=== PATIENT | male | born 1970 | race Caucasian/White ===

== ENCOUNTER 2021-01-12 14:16 | Emergency (ER) | payer MEDICAID, SELFPAY ==
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
[2021-01-12 14:21] VITALS: BP 125/82; PULSE 90; O2SAT 95
[2021-01-12 14:33] VITALS: BP 127/79; PULSE 90; RESP 17; TEMP 36.7; O2SAT 95; BMI 25.1
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
--- NOTE | 2021-01-12 15:54 | PC.NURSE ---
PT A+OX3, STEADY GAIT, AMBULATING AROUND ER, GOING OUTSIDE AND BACK INTO ED. PT PROVIDED WITH FOOD AND PO FLUIDS PER REQUEST OF PATIENT.
[2021-01-12 15:56] VITALS: PULSE 86; RESP 17; O2SAT 95
== END 2021-01-12 15:59 | disposition home or self-care (01) ==
PROVIDERS: Emergency Provider Emergency Medicine
DX: S43.401A Unspecified sprain of right shoulder joint, initial encounter (principal); S53.401A Unspecified sprain of right elbow, initial encounter; S63.91XA Sprain of unspecified part of right wrist and hand, initial encounter; S66.911A Strain of unspecified muscle, fascia and tendon at wrist and hand level, right hand, initial encounter; S63.501A Unspecified sprain of right wrist, initial encounter; S73.101A Unspecified sprain of right hip, initial encounter; S09.90XA Unspecified injury of head, initial encounter; V09.9XXA Pedestrian injured in unspecified transport accident, initial encounter; Y93.01 Activity, walking, marching and hiking; Y92.480 Sidewalk as the place of occurrence of the external cause; Y99.9 Unspecified external cause status
CPT/HCPCS: 70450; 72125; 73030; 73080; 73110; 73130; 73522; 99284; 99285

== ENCOUNTER → 2021-02-08 10:13 | Outpatient (BNVA) | payer MEDICAID, SELFPAY | PROVIDERS: Visit Provider Internal Medicine | DX: F11.99 Opioid use, unspecified with unspecified opioid-induced disorder (principal) | CPT/HCPCS: 80305; 99202 ==

== ENCOUNTER → 2021-02-18 13:35 | Outpatient (BNVA) | payer MEDICAID, SELFPAY | PROVIDERS: Visit Provider Internal Medicine | DX: Z51.81 Encounter for therapeutic drug level monitoring (principal); F11.99 Opioid use, unspecified with unspecified opioid-induced disorder | CPT/HCPCS: 80305; 99211 ==

== ENCOUNTER → 2021-02-25 13:07 | Outpatient (BNVA) | payer MEDICAID, SELFPAY | PROVIDERS: Visit Provider Internal Medicine | DX: Z51.81 Encounter for therapeutic drug level monitoring (principal); F11.99 Opioid use, unspecified with unspecified opioid-induced disorder | CPT/HCPCS: 80305; 99211 ==

== ENCOUNTER → 2021-03-04 10:37 | Outpatient (BNVA) | payer MEDICAID, SELFPAY | PROVIDERS: Visit Provider Internal Medicine | DX: Z51.81 Encounter for therapeutic drug level monitoring (principal) | CPT/HCPCS: 80305; 99211 ==

== ENCOUNTER → 2021-03-11 10:51 | Outpatient (BNVA) | payer MEDICAID, SELFPAY | PROVIDERS: Visit Provider Internal Medicine | DX: F11.20 Opioid dependence, uncomplicated (principal); F14.90 Cocaine use, unspecified, uncomplicated | CPT/HCPCS: 80305; 99212 ==

== ENCOUNTER → 2021-03-13 14:58 | Outpatient (BNVA) | payer MEDICAID, SELFPAY | PROVIDERS: Visit Provider Internal Medicine | DX: F11.90 Opioid use, unspecified, uncomplicated (principal) | CPT/HCPCS: 80305; 99212 ==

== ENCOUNTER → 2021-03-20 14:38 | Outpatient (BNVA) | payer MEDICAID, SELFPAY | PROVIDERS: Visit Provider Internal Medicine | DX: Z51.81 Encounter for therapeutic drug level monitoring (principal); F11.90 Opioid use, unspecified, uncomplicated; F14.988 Cocaine use, unspecified with other cocaine-induced disorder; R45.1 Restlessness and agitation | CPT/HCPCS: 80305; 99212 ==

== ENCOUNTER → 2021-04-03 10:23 | Outpatient (BNVA) | payer MEDICAID, SELFPAY | PROVIDERS: Visit Provider Internal Medicine | DX: F11.20 Opioid dependence, uncomplicated (principal); Z51.81 Encounter for therapeutic drug level monitoring; Z79.899 Other long term (current) drug therapy | CPT/HCPCS: 80305; 99212 ==

== ENCOUNTER 2021-04-10 13:54 | Outpatient (REF) | payer MEDICAID, SELFPAY ==
[2021-04-10 17:08] LABS: Fentanyl, urine POSITIVE (Not Detect)
== END 2021-04-10 13:55 | disposition home or self-care (01) ==
LOC: CF 13:54
PROVIDERS: Visit Provider Internal Medicine
DX: Z51.81 Encounter for therapeutic drug level monitoring (principal); F11.20 Opioid dependence, uncomplicated; Z79.899 Other long term (current) drug therapy
CPT/HCPCS: 36415; 80307; 99212

== ENCOUNTER → 2021-04-15 12:57 | Outpatient (BNVA) | payer MEDICAID, SELFPAY | PROVIDERS: Visit Provider Internal Medicine | DX: Z51.81 Encounter for therapeutic drug level monitoring (principal); F11.90 Opioid use, unspecified, uncomplicated | CPT/HCPCS: 99212 ==

== ENCOUNTER 2021-04-16 10:23 | Outpatient (REF) | payer MEDICAID, SELFPAY ==
[2021-04-16 17:26] LABS: Fentanyl, urine POSITIVE (Not Detect)
== END 2021-04-16 10:24 | disposition home or self-care (01) ==
LOC: HO.LNP 10:23
PROVIDERS: Visit Provider Internal Medicine
DX: F11.99 Opioid use, unspecified with unspecified opioid-induced disorder (principal); Z79.899 Other long term (current) drug therapy
CPT/HCPCS: 80307; 99212

== ENCOUNTER 2021-05-20 21:59 | Emergency (ER) | payer MEDICAID, SELFPAY ==
[2021-05-20 22:19] VITALS: BP 119/79; PULSE 90; RESP 18; TEMP 37.2; O2SAT 100; BMI 22.1
== END 2021-05-20 23:16 | disposition left against medical advice (07) ==
PROVIDERS: Emergency Provider Emergency Medicine
DX: M79.606 Pain in leg, unspecified (principal)
CPT/HCPCS: 99281; 99282

== ENCOUNTER 2021-06-25 16:43 | Emergency (ER) | payer MEDICAID, SELFPAY ==
[2021-06-25 17:06] VITALS: BP 139/85; PULSE 83; RESP 18; TEMP 36.1; O2SAT 100; BMI 23.6
--- NOTE | 2021-06-25 17:54 | ED.PSYCH ---
HPI - Psych General Chief Complaint: Psychiatric Symptoms <Teresita Flanagan NP - Last Filed: 06/26/21 00:31> Stated Complaint: crisis <Teresita Flanagan NP - Last Filed: 06/26/21 00:31> Time Seen by Provider: 06/25/21 17:26 <Teresita Flanagan NP - Last Filed: 06/26/21 00:31> Source: patient <Teresita Flanagan NP - Last Filed: 06/26/21 00:31> Mode of arrival: ambulatory <Teresita Flanagan NP - Last Filed: 06/26/21 00:31> Limitations: no limitations <Teresita Flanagan NP - Last Filed: 06/26/21 00:31> History of Present Illness HPI Narrative: 50-year-old male with a history of anxiety, depression here with complaints of using cocaine and heroin daily feeling sad and depressed and seeking detox. Patient tells me last Thursday he started taking methadone daily 30 mg at the clinic in [place]. He still feels like he needs inpatient detox as he is using heroin and cocaine still daily. He tells me he is using about 5 bundles a day of IV heroin and about 10-20 bags IV cocaine daily. He denies any additional substance use. He has no physical complaints. He denies suicidal ideations, homicidal ideations, hallucinations. <Teresita Flanagan NP - Last Filed: 06/26/21 00:31> Related Data Home Medications: Home Medications Medication Instructions Recorded Confirmed methadone 5 mg tablet 30 mg PO DAILY 06/26/21 06/26/21 Previous Rx's Medication Instructions Recorded acetaminophen 500 mg tablet 1,000 mg PO QID PRN #14 tab 01/12/21 (Tylenol Extra Strength) cyclobenzaprine 5 mg tablet 5 mg PO TID PRN #5 tab 01/12/21 ibuprofen 800 mg tablet 800 mg PO Q8H PRN #14 tab 01/12/21 buprenorphine 8 mg-naloxone 2 mg 3 film SUBLINGUAL DAILY 7 Days #21 04/16/21 sublingual film (Suboxone) ea <Teresita Flanagan NP - Last Filed: 06/26/21 00:31> Allergies/Adverse Reactions: Allergies Allergy/AdvReac Type Severity Reaction Status Date / Time No Known Allergies Allergy Verified 02/18/21 13:48 [No Known Allergies*] <Teresita Flanagan NP - Last Filed: 06/26/21 00:31> Review of Systems Review of Systems: Yes all other systems are reviewed and are negative <MAC Warren Last Filed: 06/26/21 00:31> Constitutional: Constitutional: Reports no additional constitutional complaints, Denies body ache(s), Denies chills, Denies fever(s), Denies headache(s) and Denies weakness <Teresita Flanagan NP - Last Filed: 06/26/21 00:31> Eyes: Eyes: Reports no additional eye complaints and Denies change in vision <Teresita Flanagan NP - Last Filed: 06/26/21 00:31> ENT: Reports system reviewed and no additional complaints, except as documented, Denies dizziness, Denies headache(s), Denies nasal congestion, Denies nasal discharge and Denies neck pain <Teresita Flanagan NP - Last Filed: 06/26/21 00:31> Cardiovascular: Cardiovascular: Reports no additional cardiovascular complaints, Denies chest pain, Denies leg edema and Denies dyspnea <Teresita Flanagan NP - Last Filed: 06/26/21 00:31> Respiratory: Respiratory: Reports no additional respiratory complaints, Denies cough and Denies dyspnea <Teresita Flanagan NP - Last Filed: 06/26/21 00:31> Gastrointestinal: Gastrointestinal: Reports no additional gastrointestinal complaints, Denies abdominal pain, Denies diarrhea, Denies nausea and Denies vomiting <Teresita Flanagan NP - Last Filed: 06/26/21 00:31> Genitourinary: Genitourinary: Denies urinary incontinence <Teresita Flanagan NP - Last Filed: 06/26/21 00:31> Musculoskeletal: Musculoskeletal: Reports no additional musculoskeletal complaints, Denies back pain, Denies arthralgias, Denies joint swelling, Denies neck pain, Denies numbness and Denies tingling <Teresita Flanagan NP - Last Filed: 06/26/21 00:31> Integumentary/Breasts: Skin/Breast: Reports system reviewed and no additional complaints, except as docu and Denies rash <Teresita Flanagan NP - Last Filed: 06/26/21 00:31> Neurologic: Reports system reviewed and no additional complaints, except as documented, Denies Abnormal speech present, Denies dizziness, Denies headache(s), Denies numbness, Denies tingling and Denies weakness <Teresita Flanagan NP - Last Filed: 06/26/21 00:31> Psychiatric: Psychiatric: Denies anxiety, Reports depression, Denies paranoia, Denies visual hallucinations, Denies hallucinations, Denies homicidal ideation and Denies suicidal ideation <Teresita Flanagan NP - Last Filed: 06/26/21 00:31> [facility] Past Medical History Attestation statement: The following information was validated with the patient. <Teresita Flanagan NP - Last Filed: 06/26/21 00:31> Source: old records reviewed and nursing notes reviewed <Teresita Flanagan NP - Last Filed: 06/26/21 00:31> Medical History: Medical History No known health problems Opioid use disorder <Teresita Flanagan NP - Last Filed: 06/26/21 00:31> Social History Social History: Social History Advance Directives: No Advance Directives Information Provided: No <Teresita Flanagan NP - Last Filed: 06/26/21 00:31> Physical Exam Vital Signs: Vital Signs: Last Vital Signs Temp 97.3 F 06/26/21 02:17 Pulse 69 06/26/21 02:17 Resp 16 06/26/21 02:17 BP 128/79 06/26/21 02:17 Pulse Ox 96 06/26/21 02:17 BMI result Body Mass Index 23.6 <Teresita Flanagan NP - Last Filed: 06/26/21 00:31> Vital Signs: Last Vital Signs Temp 97.3 F 06/26/21 02:17 Pulse 69 06/26/21 02:17 Resp 16 06/26/21 02:17 BP 128/79 06/26/21 02:17 Pulse Ox 96 06/26/21 02:17 BMI result Body Mass Index 23.6 <SORIN Sumner - Last Filed: 06/26/21 08:15> Const: General: cooperative, healthy appearing, comfortable and no acute distress <Teresita Flanagan NP - Last Filed: 06/26/21 00:31> Orientation/consciousness: patient oriented x3 <Teresita Flanagan NP - Last Filed: 06/26/21 00:31> Limitations: no limitations <eTresita Flanagan NP - Last Filed: 06/26/21 00:31> HENMT: Head: Yes normal to inspection <Teresita Flanagan NP - Last Filed: 06/26/21 00:31> Ears: hearing grossly normal bilaterally <Teresita Flanagan NP - Last Filed: 06/26/21 00:31> General nose exam: Normal external nose present <Teresita Flanagan NP - Last Filed: 06/26/21 00:31> Face and sinus: Yes normal facial exam <Teresita Flanagan NP - Last Filed: 06/26/21 00:31> Mouth: Normal oral and palatal mucosa present <Teresita Flanagan NP - Last Filed: 06/26/21 00:31> Throat: Yes posterior oropharynx normal <Teresita Flanagan NP - Last Filed: 06/26/21 00:31> Eyes: General: appearance normal, both eyes and all related structures <Teresita Flanagan NP - Last Filed: 06/26/21 00:31> Pupils: Equal, round and reactive pupils present <Teresita Flanagan NP - Last Filed: 06/26/21 00:31> Neck: Neck: Yes normal visual inspection <Teresita Flanagan NP - Last Filed: 06/26/21 00:31> Chest: Chest palpation & inspection: normal inspection of the chest <Teresita Flanagan NP - Last Filed: 06/26/21 00:31> Resp: Effort & Inspection: normal respiratory effort <Teresita Flanagan NP - Last Filed: 06/26/21 00:31> Auscultation: clear to auscultation bilaterally <Teresita Flanagan NP - Last Filed: 06/26/21 00:31> Cardio: Rate: regular rate <Teresita Flanagan NP - Last Filed: 06/26/21 00:31> Rhythm: regular rhythm <Teresita Flanagan NP - Last Filed: 06/26/21 00:31> Peripheral pulses: Peripheral pulses 2+ throughout <Teresita Flanagan NP - Last Filed: 06/26/21 00:31> GI: Inspection: Yes normal to inspection <Teresita Flanagan NP - Last Filed: 06/26/21 00:31> Palpation (GI): Soft to palpation and nontender <Teresita Flanagan NP - Last Filed: 06/26/21 00:31> Auscultation: normal bowel sounds <Teresita Flanagan NP - Last Filed: 06/26/21 00:31> Back/Spine/Pelvis: Thoracic/Lumbar Spine: thoracic and lumbar spine normal to inspection <Teresita Flanagan NP - Last Filed: 06/26/21 00:31> Skin: General skin exam: no rashes or lesions noted <Teresita Flanagan NP - Last Filed: 06/26/21 00:31> Neuro: General: patient oriented x3, no focal motor deficits and normal sensation to monofilament <Teresita Flanagan NP - Last Filed: 06/26/21 00:31> Cranial nerves: Yes Equal, round and reactive pupils present <Teresita Flanagan NP - Last Filed: 06/26/21 00:31> Cognition (Neuro): normal cognition <Teresita Flanagan NP - Last Filed: 06/26/21 00:31> Speech: No Abnormal speech present <Teresita Flanagan NP - Last Filed: 06/26/21 00:31> Gait exam (Neuro): Normal gait present <Teresita Flanagan NP - Last Filed: 06/26/21 00:31> Motor exam (neuro): 5/5 motor strength present throughout <Teresita Flanagan NP - Last Filed: 06/26/21 00:31> Extrem: General: Yes normal to inspection, Yes no pedal edema and Yes no calf tenderness <Teresita Flanagan NP - Last Filed: 06/26/21 00:31> Course Course Course Narrative: 50 yo male here seeking detox from cocaine and heroin. No physical complaints. No SI, HI. Will check labs, [place], COVID screen. Will involve care team. 2155-Spoke to recovery team. Plan is detox in AM. If patient wants to leave tonight he can. 0030- placed in physician observation pending disposition. 0200- sign out to night team pending above <Teresita Flanagan NP - Last Filed: 06/26/21 00:31> MDM - Psych Medical Records Attestation: I reviewed the patient's medical records. <Teresita Flanagan NP - Last Filed: 06/26/21 00:31> Lab Data Attestation: I reviewed the patient's lab results. <Teresita Flanagan NP - Last Filed: 06/26/21 00:31> Result diagrams: : 06/25/21 19:06 06/25/21 19:05 <Teresita Flanagan NP - Last Filed: 06/26/21 00:31> Labs: Lab Results 06/25/21 06/25/21 06/25/21 Range/Units 18:07 18:07 19:05 WBC (4.8-10.8) X10*3/uL RBC (4.60-5.80) X10*6/uL Hgb (14.0-18.0) g/dl Hct (42.0-52.0) % MCV (80.0-98.0) fL MCH (27.0-33.0) pg MCHC (31.0-36.0) g/dl RDW (11.0-16.0) % Plt Count (160-400) X10*3/uL MPV (9.4-12.4) fL Immature Gran % (Auto) (0.0-0.4) % Neut % (Auto) (45-73) % Lymph % (Auto) (20-40) % Ritchie % (Auto) (2-11) % Eos % (Auto) (0-4) % Baso % (Auto) (0-2) % Lymph # (Auto) (1.2-4.9) X10*3/uL Ritchie # (Auto) (0.1-1.2) X10*3/uL Eos # (Auto) (0.0-0.4) X10*3/uL Baso # (Auto) (0.0-0.2) X10*3/uL Abs Immat Gran (auto) (0.00-0.03) X10*3/uL Absolute Neuts (auto) (2.0-8.3) x10*3/uL Absolute Nucleated RBC (0.0-0.012) X10*3/uL Nucleated RBC % (auto) (0.0-0.2) /100WBC Sodium 140 (135-145) mmol/L Potassium 3.7 (3.3-5.1) mmol/L Chloride 101 (96-108) mmol/L Carbon Dioxide 29 (22-29) mmol/L Anion Gap 14 (12-20) BUN 22 H (9-16) mg/dL Creatinine 1.33 (0.5-1.4) mg/dL Estim Creat Clear Calc 64.9 Estimated GFR 56 Random Glucose 92 (60-115) mg/dL Calcium 9.6 (8.4-10.2) mg/dL Total Bilirubin 0.3 (0.0-1.0) mg/dL Direct Bilirubin < 0.2 (0.0-0.5) mg/dL AST 43 H (5-37) U/L ALT 44 H (0-40) U/L Alkaline Phosphatase 63 (39-117) U/L Total Protein 8.1 H (6.5-8.0) g/dL Albumin 3.8 (3.5-5.0) g/dL Urine Opiates Screen POSITIVE H (Not Detect) Urine Fentanyl Screen POSITIVE H (Not Detect) Ur Barbiturates Screen Not Detected (Not Detect) Ur Phencyclidine Scrn Not Detected (Not Detect) Ur Amphetamines Screen Not Detected (Not Detect) U Benzodiazepines Scrn Not Detected (Not Detect) Urine Cocaine Screen POSITIVE H (Not Detect) U Marijuana (THC) Screen Not Detected (Not Detect) Ethyl Alcohol mg/dL COVID-19 (DAREN) Negative (Negative) COVID-19 Clin Com See Note 06/25/21 06/25/21 Range/Units 19:05 19:06 WBC 8.9 (4.8-10.8) X10*3/uL RBC 4.50 L (4.60-5.80) X10*6/uL Hgb 12.0 L (14.0-18.0) g/dl Hct 38.8 L (42.0-52.0) % MCV 86.2 (80.0-98.0) fL MCH 26.7 L (27.0-33.0) pg MCHC 30.9 L (31.0-36.0) g/dl RDW 13.6 (11.0-16.0) % Plt Count 367 (160-400) X10*3/uL MPV 9.8 (9.4-12.4) fL Immature Gran % (Auto) 0.2 (0.0-0.4) % Neut % (Auto) 70.1 (45-73) % Lymph % (Auto) 21.9 (20-40) % Ritchie % (Auto) 6.2 (2-11) % Eos % (Auto) 1.0 (0-4) % Baso % (Auto) 0.6 (0-2) % Lymph # (Auto) 2.0 (1.2-4.9) X10*3/uL Ritchie # (Auto) 0.6 (0.1-1.2) X10*3/uL Eos # (Auto) 0.1 (0.0-0.4) X10*3/uL Baso # (Auto) 0.1 (0.0-0.2) X10*3/uL Abs Immat Gran (auto) 0.02 (0.00-0.03) X10*3/uL Absolute Neuts (auto) 6.3 (2.0-8.3) x10*3/uL Absolute Nucleated RBC 0.000 (0.0-0.012) X10*3/uL Nucleated RBC % (auto) 0.0 (0.0-0.2) /100WBC Sodium (135-145) mmol/L Potassium (3.3-5.1) mmol/L Chloride (96-108) mmol/L Carbon Dioxide (22-29) mmol/L Anion Gap (12-20) BUN (9-16) mg/dL Creatinine (0.5-1.4) mg/dL Estim Creat Clear Calc Estimated GFR Random Glucose (60-115) mg/dL Calcium (8.4-10.2) mg/dL Total Bilirubin (0.0-1.0) mg/dL Direct Bilirubin (0.0-0.5) mg/dL AST (5-37) U/L ALT (0-40) U/L Alkaline Phosphatase (39-117) U/L Total Protein (6.5-8.0) g/dL Albumin (3.5-5.0) g/dL Urine Opiates Screen (Not Detect) Urine Fentanyl Screen (Not Detect) Ur Barbiturates Screen (Not Detect) Ur Phencyclidine Scrn (Not Detect) Ur Amphetamines Screen (Not Detect) U Benzodiazepines Scrn (Not Detect) Urine Cocaine Screen (Not Detect) U Marijuana (THC) Screen (Not Detect) Ethyl Alcohol < 10 mg/dL COVID-19 (DAREN) (Negative) COVID-19 Clin Com <Teresita Flanagan NP - Last Filed: 06/26/21 00:31> Lab Results 06/25/21 06/25/21 06/25/21 Range/Units 18:07 18:07 19:05 WBC (4.8-10.8) X10*3/uL RBC (4.60-5.80) X10*6/uL Hgb (14.0-18.0) g/dl Hct (42.0-52.0) % MCV (80.0-98.0) fL MCH (27.0-33.0) pg MCHC (31.0-36.0) g/dl RDW (11.0-16.0) % Plt Count (160-400) X10*3/uL MPV (9.4-12.4) fL Immature Gran % (Auto) (0.0-0.4) % Neut % (Auto) (45-73) % Lymph % (Auto) (20-40) % Ritchie % (Auto) (2-11) % Eos % (Auto) (0-4) % Baso % (Auto) (0-2) % Lymph # (Auto) (1.2-4.9) X10*3/uL Ritchie # (Auto) (0.1-1.2) X10*3/uL Eos # (Auto) (0.0-0.4) X10*3/uL Baso # (Auto) (0.0-0.2) X10*3/uL Abs Immat Gran (auto) (0.00-0.03) X10*3/uL Absolute Neuts (auto) (2.0-8.3) x10*3/uL Absolute Nucleated RBC (0.0-0.012) X10*3/uL Nucleated RBC % (auto) (0.0-0.2) /100WBC Sodium 140 (135-145) mmol/L Potassium 3.7 (3.3-5.1) mmol/L Chloride 101 (96-108) mmol/L Carbon Dioxide 29 (22-29) mmol/L Anion Gap 14 (12-20) BUN 22 H (9-16) mg/dL Creatinine 1.33 (0.5-1.4) mg/dL Estim Creat Clear Calc 64.9 Estimated GFR 56 Random Glucose 92 (60-115) mg/dL Calcium 9.6 (8.4-10.2) mg/dL Total Bilirubin 0.3 (0.0-1.0) mg/dL Direct Bilirubin < 0.2 (0.0-0.5) mg/dL AST 43 H (5-37) U/L ALT 44 H (0-40) U/L Alkaline Phosphatase 63 (39-117) U/L Total Protein 8.1 H (6.5-8.0) g/dL Albumin 3.8 (3.5-5.0) g/dL Urine Opiates Screen POSITIVE H (Not Detect) Urine Fentanyl Screen POSITIVE H (Not Detect) Ur Barbiturates Screen Not Detected (Not Detect) Ur Phencyclidine Scrn Not Detected (Not Detect) Ur Amphetamines Screen Not Detected (Not Detect) U Benzodiazepines Scrn Not Detected (Not Detect) Urine Cocaine Screen POSITIVE H (Not Detect) U Marijuana (THC) Screen Not Detected (Not Detect) Ethyl Alcohol mg/dL COVID-19 (DAREN) Negative (Negative) COVID-19 Clin Com See Note 06/25/21 06/25/21 Range/Units 19:05 19:06 WBC 8.9 (4.8-10.8) X10*3/uL RBC 4.50 L (4.60-5.80) X10*6/uL Hgb 12.0 L (14.0-18.0) g/dl Hct 38.8 L (42.0-52.0) % MCV 86.2 (80.0-98.0) fL MCH 26.7 L (27.0-33.0) pg MCHC 30.9 L (31.0-36.0) g/dl RDW 13.6 (11.0-16.0) % Plt Count 367 (160-400) X10*3/uL MPV 9.8 (9.4-12.4) fL Immature Gran % (Auto) 0.2 (0.0-0.4) % Neut % (Auto) 70.1 (45-73) % Lymph % (Auto) 21.9 (20-40) % Ritchie % (Auto) 6.2 (2-11) % Eos % (Auto) 1.0 (0-4) % Baso % (Auto) 0.6 (0-2) % Lymph # (Auto) 2.0 (1.2-4.9) X10*3/uL Ritchie # (Auto) 0.6 (0.1-1.2) X10*3/uL Eos # (Auto) 0.1 (0.0-0.4) X10*3/uL Baso # (Auto) 0.1 (0.0-0.2) X10*3/uL Abs Immat Gran (auto) 0.02 (0.00-0.03) X10*3/uL Absolute Neuts (auto) 6.3 (2.0-8.3) x10*3/uL Absolute Nucleated RBC 0.000 (0.0-0.012) X10*3/uL Nucleated RBC % (auto) 0.0 (0.0-0.2) /100WBC Sodium (135-145) mmol/L Potassium (3.3-5.1) mmol/L Chloride (96-108) mmol/L Carbon Dioxide (22-29) mmol/L Anion Gap (12-20) BUN (9-16) mg/dL Creatinine (0.5-1.4) mg/dL Estim Creat Clear Calc Estimated GFR Random Glucose (60-115) mg/dL Calcium (8.4-10.2) mg/dL Total Bilirubin (0.0-1.0) mg/dL Direct Bilirubin (0.0-0.5) mg/dL AST (5-37) U/L ALT (0-40) U/L Alkaline Phosphatase (39-117) U/L Total Protein (6.5-8.0) g/dL Albumin (3.5-5.0) g/dL Urine Opiates Screen (Not Detect) Urine Fentanyl Screen (Not Detect) Ur Barbiturates Screen (Not Detect) Ur Phencyclidine Scrn (Not Detect) Ur Amphetamines Screen (Not Detect) U Benzodiazepines Scrn (Not Detect) Urine Cocaine Screen (Not Detect) U Marijuana (THC) Screen (Not Detect) Ethyl Alcohol < 10 mg/dL COVID-19 (DAREN) (Negative) COVID-19 Clin Com <SORIN Sumner - Last Filed: 06/26/21 08:15> Discharge Plan Discharge Clinical Impression: Opioid use disorder <Teresita Flanagan NP - Last Filed: 06/26/21 00:31> Prescriptions: No Action ibuprofen 800 mg tablet 800 mg PO Q8H PRN (Reason: pain) Qty: 14 RF: 0 acetaminophen [Tylenol Extra Strength] 500 mg tablet 1,000 mg PO QID PRN (Reason: fever or pain) Qty: 14 RF: 0 cyclobenzaprine 5 mg tablet 5 mg PO TID PRN (Reason: muscle spasm) Qty: 5 RF: 0 methadone 5 mg Tablet 30 mg PO DAILY RF: 0 buprenorphine-naloxone [Suboxone] 8-2 mg film 3 film sublingual DAILY 7 Days Qty: 21 RF: 0 <Teresita Flanagan NP - Last Filed: 06/26/21 00:31>
--- NOTE | 2021-06-25 18:16 | PC.NURSE ---
patient states wanrs help with detox from heroin and cocaine says he uses 2-5 bundles daiily, homeless, needs help with housing. feels safe, states he hasnt moved bowels normally for about 3 days, smokes about 1-2ppd cigarettes. alvinly had a bed at [facility] and will be continued at [facility] for methadone but still needs housing supports.
[2021-06-25 18:29] LABS: COVID-19 Test Negative (Negative)
--- NOTE | 2021-06-25 18:29 | MHC.RECOVSUP ---
? Reason for consult:Detox o?? Current location -04 ? o?? Identified substance use concern ?Heroin/Cocaine ?? Seeking ATS (detox) ?? Support ? Intervention: o?? ATS bed search started/completed/in process o?? MAT started or to be started o?? Community resources provided o?? Harm reduction discussion ? Plan: o?? Bed search in progress to o?? Follow up tomorrow? o?? Patient awaiting crisis evaluation o?? Patient to follow up with [facility] after discharge ? Additional information: ?Met with Pt.states that he had a bed at [facility] today. But didn't fall through . I call and left a message with [facility] still no response. Spoke to the Care Team and hopefully [facility] can call tomorrow and find out the statics of his bed search.
[2021-06-25 18:31] LABS: Amphetamine Screen Urine Not Detected (Not Detect); Barbiturates, Urine Not Detected (Not Detect); Benzodiazepines Screen Urine Not Detected (Not Detect); Cannabinoid Screen Urine Not Detected (Not Detect); Cocaine Screen Urine POSITIVE (Not Detect); Fentanyl, urine POSITIVE (Not Detect); Opiate Screen Urine POSITIVE (Not Detect); Phencyclidine Screen Urine Not Detected (Not Detect)
[2021-06-25 19:11] LABS: MANUAL DIFF FLAG NO
[2021-06-25 19:12] LABS: Basophils Absolute Auto 0.1 X10*3/uL (0.0-0.2); Basophils Percent Auto 0.6 % (0-2); Eosinophils Absolute Auto 0.1 X10*3/uL (0.0-0.4); Hematocrit 38.8 % (42.0-52.0); Imm Gran Abs Auto 0.02 X10*3/uL (0.00-0.03); Imm Gran Pct Auto 0.2 % (0.0-0.4); Lymphocytes Percent Auto 21.9 % (20-40); Mean Corpuscular HGB Conc 30.9 g/dl (31.0-36.0); Mean Corpuscular Hemoglobin 26.7 pg (27.0-33.0); Mean Corpuscular Volume 86.2 fL (80.0-98.0); Mean Platelet Volume 9.8 fL (9.4-12.4); Monocytes Absolute Auto 0.6 X10*3/uL (0.1-1.2); Monocytes Percent Auto 6.2 % (2-11); Neutrophils Absolute Auto 6.3 x10*3/uL (2.0-8.3); Neutrophils Percent Auto 70.1 % (45-73); Platelet Count 367 X10*3/uL (160-400); Red Cell Distribution Width 13.6 % (11.0-16.0); White Blood Count 8.9 X10*3/uL (4.8-10.8)
[2021-06-25 19:27] LABS: Ethanol < 10 mg/dL
[2021-06-25 19:30] LABS: Alanine Aminotransferase 44 U/L (0-40); Albumin Level 3.8 g/dL (3.5-5.0); Alkaline Phosphatase 63 U/L (39-117); Anion Gap 14 (12-20); Aspartate Amino Transferase 43 U/L (5-37); Bilirubin Direct < 0.2 mg/dL (0.0-0.5); Bilirubin Total 0.3 mg/dL (0.0-1.0); Blood Urea Nitrogen 22 mg/dL (9-16); Calcium 9.6 mg/dL (8.4-10.2); Carbon Dioxide 29 mmol/L (22-29); Chloride 101 mmol/L (96-108); Creatinine Clr Calc Pharmacy 64.9; Estimated Glomerular Filt Rate 56; Glucose Random 92 mg/dL (60-115); Potassium 3.7 mmol/L (3.3-5.1); Sodium 140 mmol/L (135-145); Total Protein 8.1 g/dL (6.5-8.0)
[2021-06-26 02:17] VITALS: BP 128/79; PULSE 69; RESP 16; TEMP 36.3; O2SAT 96
--- NOTE | 2021-06-26 06:13 | PC.NURSE ---
Patient slept through the night, no distress observed/reported, patient was few times for bathroom use and back, Luxembourgish speaking only, patient is not on any medication at this time except Methadon 30 mg which is verified by [facility], [facility] rec updated/pharmacy faxed/pending providers approval, head girls golf coach is working on patient's detox bed search (see head girls golf coach note), VSS, will continue to monitor
--- NOTE | 2021-06-26 07:16 | PC.NURSE ---
patient appears to remain at rest at present respirations are even and unlabored appears in no distress
[2021-06-26] MEDS: methADONE HCl 20 MG/2 ML ORAL.CONC 30 MG PO (08:50)
--- NOTE | 2021-06-26 08:55 | MHC.RECOVSUP ---
Recovery Support note: Patient is a 50 year old Swiss speaking male who presented to [facility] seeking detox on 06/25/21. No beds were available at that time and patient remained in the ED overnight. This administrative underwriter met with patient on 06/26/21 to confirm he is still interested in detox. Patient confirms he is interested in detox. Patient has been accepted to [facility] for a 945 admission time. [facility] transport patient. Discussed case with patient's RN and ED provider.
== END 2021-06-26 09:31 | disposition home or self-care (01) ==
PROVIDERS: Nurse Practitioner Family; Emergency Provider Emergency Medicine Emergency Medical Services
DX: F33.1 Major depressive disorder, recurrent, moderate (principal); F11.10 Opioid abuse, uncomplicated; F14.10 Cocaine abuse, uncomplicated; Z20.822 Contact with and (suspected) exposure to COVID-19; Z79.899 Other long term (current) drug therapy
CPT/HCPCS: 36415; 80048; 80076; 80307; 82077; 85025; 87635; 99283; 99284

== ENCOUNTER 2021-12-01 19:38 | Observation (INO) | payer MEDICAID, SELFPAY ==
--- NOTE | ~2021-12-01 | US_ITS ---
EXAMINATION: US VENOUS ULTRASOUND WITH DOPPLER LOWER EXTREMITY, BILATERAL CLINICAL INFORMATION: Bilateral lower extremity edema and pain COMPARISON: None TECHNIQUE: Ultrasound of the deep veins is performed from the hip to the calf with compression sonography and color and pulse Doppler assessment. Spectral analysis with color-flow imaging is performed. FINDINGS: RIGHT: There is normal venous compression and respiratory variation and augmented flow. The visualized common femoral vein, superficial femoral vein, profunda femoral vein, popliteal vein, and the trifurcation region shows no evidence of deep venous thrombosis. There is no significant popliteal fossa cyst. Prominent lymph nodes are seen in the inguinal region LEFT: There is normal venous compression and respiratory variation and augmented flow. The visualized common femoral vein, superficial femoral vein, profunda femoral vein, popliteal vein, and the trifurcation region shows no evidence of deep venous thrombosis. There is no significant popliteal fossa cyst. Prominent lymph nodes are seen in the inguinal region. If the patient's symptoms persist, followup ultrasound in 5 days 7 days might be of value to exclude proximal propagation from a non-visualized calf vein. US/US venous duplex LE BI IMPRESSION: No DVT demonstrated in either lower extremity.
[2021-12-01 19:47] VITALS: BP 138/78; PULSE 78; O2SAT 97
--- NOTE | 2021-12-01 19:49 | PC.NURSE ---
Brother's phone number [phone] (Yoav
[2021-12-01 19:54] VITALS: BP 120/75; PULSE 97; RESP 18; TEMP 38; O2SAT 95; BMI 24.0
[2021-12-01 20:11] LABS: MANUAL DIFF FLAG NO
[2021-12-01 20:13] LABS: Basophils Absolute Auto 0.1 X10*3/uL (0.0-0.2); Basophils Percent Auto 0.5 % (0-2); Eosinophils Percent Auto 0.1 % (0-4); Hematocrit 33.9 % (42.0-52.0); Hemoglobin 10.8 g/dl (14.0-18.0); Imm Gran Abs Auto 0.04 X10*3/uL (0.00-0.03); Imm Gran Pct Auto 0.4 % (0.0-0.4); Lymphocytes Percent Auto 8.9 % (20-40); Mean Corpuscular HGB Conc 31.9 g/dl (31.0-36.0); Mean Corpuscular Hemoglobin 26.9 pg (27.0-33.0); Mean Corpuscular Volume 84.5 fL (80.0-98.0); Mean Platelet Volume 11.2 fL (9.4-12.4); Monocytes Absolute Auto 0.9 X10*3/uL (0.1-1.2); Monocytes Percent Auto 7.9 % (2-11); Neutrophils Absolute Auto 9.1 x10*3/uL (2.0-8.3); Neutrophils Percent Auto 82.2 % (45-73); Platelet Count 290 X10*3/uL (160-400); Red Blood Count 4.01 X10*6/uL (4.60-5.80); Red Cell Distribution Width 13.2 % (11.0-16.0); White Blood Count 11.1 X10*3/uL (4.8-10.8)
[2021-12-01 20:32] LABS: Alanine Aminotransferase 34 U/L (0-40); Albumin Level 3.8 g/dL (3.5-5.0); Alkaline Phosphatase 57 U/L (39-117); Anion Gap 12 (12-20); Aspartate Amino Transferase 46 U/L (5-37); Bilirubin Total 1.1 mg/dL (0.0-1.0); Blood Urea Nitrogen 37 mg/dL (9-16); Calcium 9.5 mg/dL (8.4-10.2); Carbon Dioxide 24 mmol/L (22-29); Chloride 100 mmol/L (96-108); Creatinine Clr Calc Pharmacy 36.3; Estimated Glomerular Filt Rate 36; Glucose Random 140 mg/dL (60-115); Potassium 4.4 mmol/L (3.3-5.1); Sodium 132 mmol/L (135-145); Total Protein 7.7 g/dL (6.5-8.0)
[2021-12-01 20:40] LABS: COVID-19 Test Negative (Negative); IDNOW Serial# 16C4AD1C
[2021-12-01 20:41] LABS: Influenza A Negative (Negative); Influenza B2 Negative (Negative)
--- NOTE | 2021-12-02 02:01 | PC.NURSE ---
attempted to draw Blood cultures on patient x2, patient resistant and uncooperative with blood draw and MD assessment at this time.
--- NOTE | 2021-12-02 02:06 | ED_ITS ---
HPI - Skin/Abscess/Foreign Bdy General Chief complaint: Skin/Abscess/Foreign Body Stated complaint: od Time Seen by Provider: 12/02/21 02:06 Source: patient Mode of arrival: ambulatory History of Present Illness HPI narrative: 51-year-old male with history of IVDA and cocaine that he injects into his legs and states that he has had worsening swelling, redness, and pain in bilateral lower extremities with chills. Related Data Home Medications Medication Instructions Recorded Confirmed methadone 5 mg tablet 30 mg PO DAILY 06/26/21 06/26/21 Previous Rx's Medication Instructions Recorded acetaminophen 500 mg tablet 1,000 mg PO QID PRN #14 tab 01/12/21 (Tylenol Extra Strength) cyclobenzaprine 5 mg tablet 5 mg PO TID PRN #5 tab 01/12/21 ibuprofen 800 mg tablet 800 mg PO Q8H PRN #14 tab 01/12/21 buprenorphine 8 mg-naloxone 2 mg 3 film SUBLINGUAL DAILY 7 Days #21 04/16/21 sublingual film (Suboxone) ea Allergies Allergy/AdvReac Type Severity Reaction Status Date / Time No Known Allergies Allergy Verified 02/18/21 13:48 [No Known Allergies*] Review of Systems Review of Systems: Pertinent positives and negatives as stated in HPI 10 point review of systems is otherwise negative PMFSH Past Medical History Source: nursing notes reviewed Medical History No known health problems Opioid use disorder Social History Social History Advance Directives: No Physical Exam Vital Signs: Vital Signs: Last Vital Signs Temp 100.4 F 12/01/21 19:54 Pulse 97 12/01/21 19:54 Resp 18 12/01/21 19:54 BP 120/75 12/01/21 19:54 Pulse Ox 95 12/01/21 19:54 BMI result Body Mass Index 24.0 VITAL SIGNS: Reviewed. GENERAL: Well developed, well nourished, in no acute distress. HEAD: Normocephalic/atraumatic EYES: PERRLA, EOMI EARS: Ext canals without abnormality OROPHARYNX: no oral lesions noted, posterior pharynx clear LUNGS: Normal breath sounds. No adventitious sounds or accessory muscle use. SpO2<95> CARDIOVASCULAR: Regular rate and rhythm without noted murmurs, no JVD bilateral lower extremity edema 1 to 2+ pitting ABDOMEN: Soft, non-tender, non-distended with bowel sounds. MUSCULOSKELETAL: No tenderness, deformities, or effusions noted on gross inspection. EXTREMITIES: No cyanosis, clubbing but bilateral lower extremity pitting edema with erythema and induration all the way up to the knees and obvious stigmata injection sites pulses are palpable and capillary refills less than 3 seconds SKIN: Inspection of the skin reveals no rashes NEUROLOGIC: Alert and oriented x 4. Strength and sensation to light touch were grossly intact x 4. Course Course Course Narrative: 51-year-old male with history and clinical presentation consistent with bilateral cellulitis likely secondary to multiple injections sites from IVDA and lower clinical suspicion for DVT but given injection history will obtain bilateral venous duplex although patient is not reporting shortness of breath but is noted to be febrile. On review of all investigations patient also has KANDACE. Patient received antibiotics and fluids here in the emergency room. I discussed the case with inpatient hospitalist who accepts admission. MDM - Skin/Abscess/Foreign Bdy Lab Data Result diagrams: 12/01/21 20:05 12/01/21 20:05 Labs: Lab Results 12/01/21 12/01/21 12/01/21 Range/Units 20:05 20:05 20:05 WBC 11.1 H (4.8-10.8) X10*3/uL RBC 4.01 L (4.60-5.80) X10*6/uL Hgb 10.8 L (14.0-18.0) g/dl Hct 33.9 L (42.0-52.0) % MCV 84.5 (80.0-98.0) fL MCH 26.9 L (27.0-33.0) pg MCHC 31.9 (31.0-36.0) g/dl RDW 13.2 (11.0-16.0) % Plt Count 290 (160-400) X10*3/uL MPV 11.2 (9.4-12.4) fL Immature Gran % (Auto) 0.4 (0.0-0.4) % Neut % (Auto) 82.2 H (45-73) % Lymph % (Auto) 8.9 L (20-40) % Robertson % (Auto) 7.9 (2-11) % Eos % (Auto) 0.1 (0-4) % Baso % (Auto) 0.5 (0-2) % Lymph # (Auto) 1.0 L (1.2-4.9) X10*3/uL [place] # (Auto) 0.9 (0.1-1.2) X10*3/uL Eos # (Auto) 0.0 (0.0-0.4) X10*3/uL Baso # (Auto) 0.1 (0.0-0.2) X10*3/uL Abs Immat Gran (auto) 0.04 H (0.00-0.03) X10*3/uL Absolute Neuts (auto) 9.1 H (2.0-8.3) x10*3/uL Absolute Nucleated RBC 0.000 (0.0-0.012) X10*3/uL Nucleated RBC % (auto) 0.0 (0.0-0.2) /100WBC Sodium 132 L (135-145) mmol/L Potassium 4.4 (3.3-5.1) mmol/L Chloride 100 (96-108) mmol/L Carbon Dioxide 24 (22-29) mmol/L Anion Gap 12 (12-20) BUN 37 H D (9-16) mg/dL Creatinine 1.97 H (0.5-1.4) mg/dL Estim Creat Clear Calc 36.3 Estimated GFR 36 Random Glucose 140 H D (60-115) mg/dL Lactic Acid (0.5-2.0) mmol/L Calcium 9.5 (8.4-10.2) mg/dL Total Bilirubin 1.1 H (0.0-1.0) mg/dL AST 46 H (5-37) U/L ALT 34 (0-40) U/L Alkaline Phosphatase 57 (39-117) U/L Total Protein 7.7 (6.5-8.0) g/dL Albumin 3.8 (3.5-5.0) g/dL COVID-19 (DAREN) (Negative) COVID-19 Clin Com Influenza Type A (JAROCHO) Negative (Negative) Influenza Type B (JAROCHO) Negative (Negative) Influenza A & B Note See Note 12/01/21 12/02/21 Range/Units 20:05 02:41 WBC (4.8-10.8) X10*3/uL RBC (4.60-5.80) X10*6/uL Hgb (14.0-18.0) g/dl Hct (42.0-52.0) % MCV (80.0-98.0) fL MCH (27.0-33.0) pg MCHC (31.0-36.0) g/dl RDW (11.0-16.0) % Plt Count (160-400) X10*3/uL MPV (9.4-12.4) fL Immature Gran % (Auto) (0.0-0.4) % Neut % (Auto) (45-73) % Lymph % (Auto) (20-40) % Robertson % (Auto) (2-11) % Eos % (Auto) (0-4) % Baso % (Auto) (0-2) % Lymph # (Auto) (1.2-4.9) X10*3/uL [place] # (Auto) (0.1-1.2) X10*3/uL Eos # (Auto) (0.0-0.4) X10*3/uL Baso # (Auto) (0.0-0.2) X10*3/uL Abs Immat Gran (auto) (0.00-0.03) X10*3/uL Absolute Neuts (auto) (2.0-8.3) x10*3/uL Absolute Nucleated RBC (0.0-0.012) X10*3/uL Nucleated RBC % (auto) (0.0-0.2) /100WBC Sodium (135-145) mmol/L Potassium (3.3-5.1) mmol/L Chloride (96-108) mmol/L Carbon Dioxide (22-29) mmol/L Anion Gap (12-20) BUN (9-16) mg/dL Creatinine (0.5-1.4) mg/dL Estim Creat Clear Calc Estimated GFR Random Glucose (60-115) mg/dL Lactic Acid 1.2 (0.5-2.0) mmol/L Calcium (8.4-10.2) mg/dL Total Bilirubin (0.0-1.0) mg/dL AST (5-37) U/L ALT (0-40) U/L Alkaline Phosphatase (39-117) U/L Total Protein (6.5-8.0) g/dL Albumin (3.5-5.0) g/dL COVID-19 (DAREN) Negative (Negative) COVID-19 Clin Com See Note Influenza Type A (JAROCHO) (Negative) Influenza Type B (JAROCHO) (Negative) Influenza A & B Note Discharge Plan Discharge Clinical Impression: Opioid use disorder, Cellulitis, KANDACE (acute kidney injury) Patient Disposition: Admitted As Inpatient Prescriptions: No Action ibuprofen 800 mg tablet 800 mg PO Q8H PRN (Reason: pain) Qty: 14 0RF acetaminophen [Tylenol Extra Strength] 500 mg tablet 1,000 mg PO QID PRN (Reason: fever or pain) Qty: 14 0RF cyclobenzaprine 5 mg tablet 5 mg PO TID PRN (Reason: muscle spasm) Qty: 5 0RF methadone 5 mg Tablet 30 mg PO DAILY 0RF buprenorphine-naloxone [Suboxone] 8-2 mg film 3 film sublingual DAILY 7 Days Qty: 21 0RF Rx Instructions: FARZAD Number; [id number]
[2021-12-02 02:58] LABS: Lactic Acid 1.2 mmol/L (0.5-2.0)
[2021-12-02] MEDS: Piperacillin Sodium/Tazobactam 3.375 GM in 0.9 % Sodium Chloride 50 ML IV (03:10)
[2021-12-02] MEDS: Acetaminophen 325 MG TABLET 975 MG PO (03:40)
[2021-12-02 03:49] VITALS: BP 107/55; PULSE 86; RESP 18; TEMP 37.2; O2SAT 95
[2021-12-02] MEDS: vancomycin HCL 1,000 MG in 0.9 % Sodium Chloride 250 ML 270 MG IV (04:18)
[2021-12-02] MEDS: 0.9 % Sodium Chloride 1,000 ML 999 ML IV (04:18)
--- NOTE | 2021-12-02 09:08 | PM.IMHP ---
History of Present Illness Date of Service: 12/02/21 Chief Complaint: bilateral leg pain This is a 51 year old male with a PMH of IVDU -- cocaine + heroin, previously on suboxone who presented to the ED on 12/02/21 with complaints of bilateral lower extremity pain. 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 It appears that over the last week, he has had worsening pain in the legs. He does admit to injection use in the bilateral legs and reports use on the day of admission. He denies any fevers or chills. Upon arrival to the ED, he was noted to have lower extremity cellulitis. He also had KANDACE. He was given vacomcyin/zosyn + IVF and admission was requested. In regards to PMH/PSH/SH/FH -- this is obtained from what is documented in the chart as the patient does not answer these questions. Review of Systems Review of Systems: unable to fully assess due to patient compliance [facility] Medical History No known health problems Opioid use disorder Pertinent family history: unable to assess Social History Advance Directives: No Meds Allergies Allergy/AdvReac Type Severity Reaction Status Date / Time No Known Allergies Allergy Verified 02/18/21 13:48 [No Known Allergies*] Active Medications: Current Medications Acetaminophen (Acetaminophen 325 Mg Tablet) 650 mg PO Q6H PRN PRN Reason: Pain, Mild (Pain Scale 1-3) Ondansetron HCl (Ondansetron Hcl 4 Mg/2 Ml Vial) 4 mg IVPUSH Q8H PRN PRN Reason: Nausea and Vomiting Oxycodone HCl (Oxycodone Hcl Immed Release 5 Mg Tablet) 5 mg PO Q6H PRN PRN Reason: Pain, Severe (Pain Scale 7-10) Pharmacy Consult (Consult Rx Perform Med Rec) 1 each MISCELLANE ONCE PRN PRN Reason: Consult order Home Medications Medication Instructions Recorded Confirmed Last Taken Type methadone 5 mg tablet 30 mg PO DAILY 06/26/21 06/26/21 06/25/21 09:00 History Physical Exam Vital Signs and Narrative: Vital Signs: Last Vital Signs Temp 98.9 F 12/02/21 03:49 Pulse 86 12/02/21 03:49 Resp 18 12/02/21 03:49 BP 107/55 L 12/02/21 03:49 Pulse Ox 95 12/02/21 03:49 BMI result Body Mass Index 24.0 Const: Other: Constitutional - uncooperative with his body overed in bedsheets -- does let me examine his legs and auscultate, but otherwise uncooperative Eyes - unable to assess, patient uncooperative Cardiovascular - S1S2 Respiratory - no respiratory distress, lung CTA b/l Gastrointestinal - normal BS; non-tender - unable to assess, patient uncooperative Extremities - see pictures Musculoskeletal - see pictures Skin - see picutres Neurological - unable to assess, patient uncooperative; knows date, location and why he is here Psychological - uncooperative Skin: Other: Results Labs CBC and Chem 7: 12/01/21 20:05 12/01/21 20:05 Labs: Laboratory Results - last 24 hr 12/01/21 12/01/21 12/01/21 20:05 20:05 20:05 MCV 84.5 MCH 26.9 L MCHC 31.9 RDW 13.2 Plt Count 290 MPV 11.2 Immature Gran % (Auto) 0.4 Neut % (Auto) 82.2 H Lymph % (Auto) 8.9 L [place] % (Auto) 7.9 Eos % (Auto) 0.1 Baso % (Auto) 0.5 Lymph # (Auto) 1.0 L [place] # (Auto) 0.9 Eos # (Auto) 0.0 Baso # (Auto) 0.1 Abs Immat Gran (auto) 0.04 H Absolute Neuts (auto) 9.1 H Absolute Nucleated RBC 0.000 Nucleated RBC % (auto) 0.0 Anion Gap 12 Estim Creat Clear Calc 36.3 Estimated GFR 36 Random Glucose 140 H D Lactic Acid Calcium 9.5 Total Bilirubin 1.1 H AST 46 H ALT 34 Alkaline Phosphatase 57 Total Protein 7.7 Albumin 3.8 COVID-19 (DAREN) COVID-19 Clin Com Influenza Type A (JAROCHO) Negative Influenza Type B (JAROCHO) Negative Influenza A & B Note See Note 12/01/21 12/02/21 20:05 02:41 MCV MCH MCHC RDW Plt Count MPV Immature Gran % (Auto) Neut % (Auto) Lymph % (Auto) [place] % (Auto) Eos % (Auto) Baso % (Auto) Lymph # (Auto) [place] # (Auto) Eos # (Auto) Baso # (Auto) Abs Immat Gran (auto) Absolute Neuts (auto) Absolute Nucleated RBC Nucleated RBC % (auto) Anion Gap Estim Creat Clear Calc Estimated GFR Random Glucose Lactic Acid 1.2 Calcium Total Bilirubin AST ALT Alkaline Phosphatase Total Protein Albumin COVID-19 (DAREN) Negative COVID-19 Clin Com See Note Influenza Type A (JAROCHO) Influenza Type B (JAROCHO) Influenza A & B Note Assessment and Plan (1) Cellulitis: Status: Acute (2) KANDACE (acute kidney injury): Status: Acute Plan This is a 51 yo M with a PMH of active IVDU (cocaine + heroin) with last use the day of admission who presents to the ED with complaints of b/l LE pain. He is diagnosed with cellulitis and KANDACE. 1. Bilateral LE cellulitis 1a. Possible early abscess on the lateral RLE Due to IVDU IV vancomcyin -- follow cultures; Will inovlve gen surg if not responding to IV antibiotics Patient does not have severe sepsis at this time 2. KANDACE likely pre-renal IVF -- total 2L recheck BMP tomorrow 3. Polysubstance abuse per chart review -- patient previously on suboxone; unclear if he is on methadone currently -- await med rec if patient interested, will consult addiction med. At this time, he is not interested in speaking. Full Code DVT pptx -- pt refused mechanical device along with subcut heparin/lovenox; ambulation encouraged Quality Stroke Does the patient have a stroke diagnosis?: No VTE Prior VTE?: No VTE Risk Level:: Medical - moderate - high VTE Device Contraindication: Patient Refused VTE Drug Contraindication: Patient Refused
--- NOTE | 2021-12-02 10:14 | PHA.MEDREC ---
Pharmacy Consult ? Medication Reconciliation Pharmacy has completed the medication reconciliation. Patient reports no medications and would only complain of bad service since he has not had food yet and has been he for 8 hours. Asked patient if he goes to a methadone clinic or on suboxone. Patient answered no to both questions. Denise Lema, PharmD
--- NOTE | 2021-12-02 11:08 | PHA.PROG ---
Addendum entered by Denise Lema RPh 12/02/21 13:44: Labs were able to be drawn on patient. There was an improvement in renal function. Will switch patient to 750 mg Q12H start 12/02 @ 1600. Expected AUC 546 with a trough of 18.1. Next trough to be drawn 12/03 @ 1400 Original Note: Admission Date/Time: December 02, 2021 09:06 Indication:Bilaterial LE cellulitis (IVDU) Weight in k.503 kg Adjusted body weight in K kg [place] body weight in K.2 Obesity Dosing Indication % IBW: 107 % Serum Creatinine - Last 168 Hours 12/01/21 20:05 Creatinine 1.97 H Estimated CrCl and GFR - Last 168 Hours 12/01/21 20:05 Estim Creat Clear Calc 36.3 Estimated GFR 36 Vancomycin Loading Dose: NA Current Vancomycin Dosing Regimen: 1000 mg Q24H Date and Time for next Vancomycin Level to be drawn: 12/05 @ 0500 Pharmacist Comments on Vancomycin Plan: Patient recieved vancomcyin 1000 mg (15.7 mg/kg) in the ED 12/02 @ 0418 Maintenance dose to begin vancomycin 1000 mg Q24H 12/03 @ 0700. Expected AUC 526 with trough of 16.5. Maintenance dose is start 3 hours late to allow for pharmacy to evaluate trough prior to administration of medication in the future. Patient is currently in KANDACE, therefore we will start the patient on Q24H dosing. If renal function improved patient may required Q12H dosing. Patient has been uncooperative and SCr was not drawn today. Dosing based on labs overnight. If patient continue to resistant, other alternatives will have to be consider. Renal function needs to be trend daily. Trough to be drawn prior to 4th dose Denise Lema PharmD Vancomycin dosing will take advantage of Prot-On as a clinical decision support tool that uses Bayesian modeling to calculate individual patient's pharmacokinetic parameters and forecast the patient's drug concentration time course with the target goal AUC 24 range of 400 - 600 mg/L/hr.
[2021-12-02 11:21] LABS: Creatinine Clr Calc Pharmacy 57.2; Estimated Glomerular Filt Rate > 60
--- NOTE | 2021-12-02 15:15 | PC.NURSE ---
Addendum entered by Drew Styles RN 12/02/21 16:16: PT REFUSED VITALS Original Note: THIS CREDIT ADVISOR ASSUMED CARE OF THIS PT AT 1500. PT CURSING AND SWEARING AT SECURITY STAFF. WITH THE HELP OF THE LIBRARY MEDIA SPECIALIST THIS CREDIT ADVISOR EXPLAINED THE HOSPITAL'S PROTOCOL TO THE PT. PT CALMED DOWN, SNACK GIVEN, PT WENT TO SLEEP. WILL CONTINUE TO MONITOR.
[2021-12-02] MEDS: vancomycin HCL 750 MG in 0.9 % Sodium Chloride 250 ML 265 MG IV (16:53)
--- NOTE | 2021-12-02 18:41 | PC.NURSE ---
PT'S BELONGINGS LOCATED IN LOCKER 12. PT COMPLIANT WITH ANTIBIOTIC INFUSION. HE REFUSED FLUIDS TO BE HUNG. REFUSED VITALS
[2021-12-02] MEDS: oxyCODONE HCl Immed Release 5 MG TABLET PO (20:34)
--- NOTE | 2021-12-02 21:52 | PC.NURSE ---
REPORT GIVEN TO AUSTIN GUSTAFSON ON S3. PT BEING TRANSFERRED TO ROOM 369. OXYCODONE GIVEN FOR LEG PAIN. HE IS ANGRY AND REFUSING TO ANSWER QUESTIONS IF IT HELPED. DOES NOT LIKE TO BE DISTURBED. HE IS MOSTLY SLEEPING IN NO ACUTE DISTRESS.
[2021-12-02 22:00] VITALS: BP 115/58; PULSE 74; RESP 18; TEMP 37; O2SAT 98
[2021-12-02 22:26] VITALS: BP 122/75; PULSE 75; RESP 18; TEMP 37.7; O2SAT 92
--- NOTE | 2021-12-03 04:56 | PC.NURSE ---
pt came to floor and iv site was already all bloody looking not able to flush , and pt refused another iv also he refused his labs md dr Rasmussen notified he was explained with interpretor staff member on unit used importance of taking iv antibiotics
--- NOTE | 2021-12-03 12:30 | PM.DS ---
DS: Providers Provider Date of Service: 12/03/21 Date of admission: 12/02/21 09:06 Primary care physician: [facility] Consults: 12/03/21 08:33 Consult to Infectious Diseases Routine Consulting Provider: Liz Del Cid Reason for consultation: leg cellulitis/possible bacteremia Has provider been notified: No DS: Diagnosis Discharge Diagnosis (1) Cellulitis: Status: Acute (2) KANDACE (acute kidney injury): Status: Acute DS: Summary Hospital Course Hospital Course: 51 year old male with a PMH of IVDU -- cocaine + heroin, previously on suboxone who presented to the ED on 12/02/21 with complaints of bilateral lower extremity pain. 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 It appears that over the last week, he has had worsening pain in the legs. He does admit to injection use in the bilateral legs and reports use on the day of admission. He denies any fevers or chills. Upon arrival to the ED, he was noted to have lower extremity cellulitis. He also had KANDACE. He was given vacomcyin/zosyn + IVF and admission was requested. In regards to PMH/PSH/SH/FH -- this is obtained from what is documented in the chart as the patient does not answer these questions. Hospital course: Patient admitted with leg cellulitis history of IV drug user-started on IV antibiotics and blood culture x1 grew Gram-positive cocci , other 2 set of blood cultures are still negative 24hours: Patient decided to leave against medical advice, risks of leaving against medical advice including worsening of cellulitis and can lose his limb, sepsis, bacteremia including discussed with him he is alert oriented x3 still wants to leave -refused refused further treatment and even declined p.o. antibiotics. He he was also requested to go to nearest emergency room and get treated, he left without signing AMA paper. Nursing staff Miss (Jen) is present during the conversation, used automobile brake bonder. Time Spent with Patient Time attestation: Total time spent providing and/or coordinating discharge services: Discharge coordination time: Greater than 30 minutes Quality: Safe Use of Opioids Does Pt have an Active Cancer Diagnosis on the Problem List?: No Quality: Stroke Does the patient have a stroke diagnosis?: No Physical Exam Vital Signs: Vital Signs: Last Vital Signs Temp 99.9 F 12/02/21 22:26 Pulse 75 12/02/21 22:26 Resp 18 12/02/21 22:26 BP 122/75 12/02/21 22:26 Pulse Ox 92 12/02/21 22:26 BMI result Body Mass Index 24.0 Refused physical exam. DS: Data Data Completed and Pending Labs on day of discharge: Preliminary micro results at discharge 12/02/21 02:39 Blood Culture - Preliminary Blood - Venous Prelim: GPC Gram Stain only 12/02/21 03:06 Blood Culture - Preliminary Blood - Venous No growth after 24 hours. 12/02/21 02:39 Blood Culture - Preliminary Blood - Venous No growth after 24 hours. Additional Comments Additional comments: ?US/US venous duplex LE BI IMPRESSION: No DVT demonstrated in either lower extremity. Discharge Plan Discharge Patient Disposition: Left Against Medical Advice Discharge Diagnosis: leg cellulitis ,kandace , possible bacteremia Referrals: [facility] [Primary Care Provider] - 1 Week Discharge Medications: No Action No Known Home Meds 0RF Discharge Orders: Discharge Order (Routine); Ordered 12/03/21 Ordered By: Stacie Shepherd Diet: advance to usual diet Activity on Discharge: As tolerated Care Plan Goals: Patient admitted with leg cellulitis history of IV drug user-started on IV antibiotics and blood culture x1 grew Gram-positive cocci , other 2 set of blood cultures are still negative 24hours: Patient decided to leave against medical advice, risk of leaving against medical advice including worsening of cellulitis, sepsis, bacteremia including discussed with him he is alert oriented x3 still wants to leave -refused refused further treatment and even declined p.o. antibiotics. He he was also requested to go to nearest emergency room and get treated, he left without signing AMA paper. Health Concerns: As above. Plan of Treatment: As above. Assessment: As above.
--- NOTE | 2021-12-03 12:32 | MHC.CM.PN ---
[place] 12/03/21, CM ATTEMPTED TO MEET W/PT VIA LENS BLOCKER, PT VERBALIZED UNDERSTANDING OF [place] NOTICE, TELLS LENS BLOCKER HE IS LIVING ON THE STREETS HOWEVER REFUSES TO ANSWER ANY OTHER QUESTION DURING CM ASSESSMENT, ANTIC PT WILL D/C AMA. HOWEVER IF NOT PT MAY NEED 6WKS IV ABX AT SNF D/T CURRENT SA.
== END 2021-12-03 12:00 | disposition left against medical advice (07) ==
LOC: HO.ED 12-02 03:26 → HO.EDOVER 12-02 09:37 → HO.S3 12-02 18:40
PROVIDERS: Admitting Provider Family Medicine; Emergency Provider Student in an Organized Health Care Education/Training Program; Visit Provider Internal Medicine
DX: L03.90 Cellulitis, unspecified (principal); N17.9 Acute kidney failure, unspecified; F11.20 Opioid dependence, uncomplicated; F14.20 Cocaine dependence, uncomplicated; M79.662 Pain in left lower leg; M79.661 Pain in right lower leg; R68.83 Chills (without fever); Z20.822 Contact with and (suspected) exposure to COVID-19; Z91.19 Patient's noncompliance with other medical treatment and regimen; Z53.29 Procedure and treatment not carried out because of patient's decision for other reasons
CPT/HCPCS: 36415; 80053; 82565; 83605; 85025; 87040; 87147; 87205; 87502; 87635; 93970; 96361; 96365; 96366; 96367; 99218; 99283; 99285; J2543; J3370

== ENCOUNTER 2022-03-13 19:17 | Emergency (ER) | payer MEDICAID, SELFPAY ==
[2022-03-13 19:36] VITALS: BP 132/64; PULSE 96; O2SAT 98
[2022-03-14 00:36] VITALS: BP 131/80; PULSE 68; RESP 18; TEMP 36.8; O2SAT 97; BMI 22.1
[2022-03-14 00:36] LABS: Appearance Urine Clear; Color Urine Yellow; Glucose Urine UA Negative (Negative); Leukocyte Esterase Urine Negative (Negative); Nitrite Urine Negative (Negative); PH 5.5 (5.0-8.0); Urine Blood Negative (Negative); Urine Ketones Negative (Negative); Urine Protein 30 (1+) mg/dL (Neg-Trace)
[2022-03-14 00:39] LABS: Bacteria Urine None Seen (None Seen); Hyaline Casts Urine 0-2 /LPF (0-2); RBC Urine 0-2 /HPF (0-2); Squamous Epithelial Cell Urine 0-2 /HPF (0-2); WBC Urine 0-5 /HPF (0-5)
[2022-03-14 00:56] LABS: Amphetamine Screen Urine Not Detected (Not Detect); Barbiturates, Urine Not Detected (Not Detect); Benzodiazepines Screen Urine Not Detected (Not Detect); Cannabinoid Screen Urine Not Detected (Not Detect); Cocaine Screen Urine POSITIVE (Not Detect); Fentanyl, urine POSITIVE (Not Detect); Opiate Screen Urine POSITIVE (Not Detect); Phencyclidine Screen Urine Not Detected (Not Detect)
[2022-03-14 07:45] VITALS: BP 135/77; PULSE 62; RESP 14; TEMP 37.4; O2SAT 99
--- NOTE | 2022-03-14 07:47 | PC.NURSE ---
Pt is currently sleeping. No distress. Breathing is even and unlabored. Will continue to monitor.
--- NOTE | 2022-03-14 10:15 | PC.NURSE ---
pt not willing to talk to comprehensive care about detox. pt eloped
== END 2022-03-14 10:16 | disposition left against medical advice (07) ==
PROVIDERS: Emergency Provider Emergency Medicine
DX: F11.99 Opioid use, unspecified with unspecified opioid-induced disorder (principal); F14.90 Cocaine use, unspecified, uncomplicated
CPT/HCPCS: 80307; 81001; 99282; 99283

== ENCOUNTER 2023-10-01 17:56 | Emergency (ER) | payer MEDICAID, SELFPAY ==
[2023-10-01 18:27] VITALS: BP 125/83; PULSE 88; RESP 20; TEMP 37.2; O2SAT 95; BMI 28.3
--- NOTE | 2023-10-01 18:29 | ED.GENADULT ---
HPI - General Adult General Chief complaint: ETOH/Substance Use Stated complaint: arm infection Time Seen by Provider: 10/01/23 21:41 Source: patient Mode of arrival: ambulatory Limitations: no limitations History of Present Illness HPI narrative: patient comes to the emergency room seeking detox for heroin and cocaine. Patient states that he had a relapse. Patient denies SI or HI. Also, patient complaining of cellulitis of his left upper arm. Related Data Home Medications Medication Instructions Recorded Confirmed No Known Home Meds 12/02/21 12/02/21 Allergies Allergy/AdvReac Type Severity Reaction Status Date / Time No Known Allergies Allergy Verified 10/01/23 18:31 [No Known Allergies*] Review of Systems Review of Systems: Constitutional : No Weight loss, No Fever, No Chills, No Night Sweats, No Fatigue, No Malaise ENT/Mouth : No Hearing loss, No Ear Pain, No Nasal Congestion, No Sinus Pain, No Hoarseness, No sore throat, No Rhinorrhea, No Swallowing Difficulty Eyes: No Eye Pain, No Swelling, No Redness, No Foreign Body, No Discharge, No Vision Changes Cardiovascular : No Chest Pain, No SOB, No Dyspnea on Exertion, No Orthopnea, No Edema, No Palpitations Respiratory : No Cough, No Sputum, No Wheezing, No Smoke Exposure, No Dyspnea Gastrointestinal : No Nausea, No Vomiting, No Diarrhea, No Constipation, No abdominal Pain, No Hematochezia, No Melena Genitourinary : no irregular bleeding, No Dysuria, No Urinary Frequency, No Hematuria, No Urinary Incontinence, No Urgency, No Flank Pain, No Urinary Flow Changes, No Hesitancy Musculoskeletal : No joint pain, No Myalgias, No Joint Swelling Skin : No Skin Lesions, No rash Neuro : No Weakness, No Numbness, No Paresthesias, No Loss of Consciousness, No Dizziness, No Headache Psych : No Anxiety/Panic, No Depression, No SI/HI/AH/VH, Admits to drug use, Stating that he is homeless. Heme/Lymph: No Bruising, No Bleeding,No Lymphadenopathy Endocrine : No Polyuria, No Polydipsia, No Temperature Intolerance PMFSH Past Medical History Medical History Opioid use disorder No known health problems Social History Social History Patient Tobacco Use Status: Tobacco use Unknown Advance Directives: No Advance Directives Information Provided: No service: No Current occupational status: unemployed Physical Exam ED Vital Signs: Vital Signs - 24 hr 10/01/23 18:27 10/01/23 21:57 Temperature 98.9 F 99.0 F Pulse Rate 88 93 Respiratory Rate 20 14 Blood Pressure 125/83 135/79 Pulse Oximetry 95 94 Oxygen Delivery Method Room Air Room Air BMI result Body Mass Index 28.3 Const Other: Appearance: Alert. Oriented X3. No acute distress. Well-appearing, no signs of withdrawal Eyes: Pupils equal, round and reactive to light. ENT: Pharynx normal. Neck: Normal inspection. Neck supple. No lymph nodes noted. No crepitus CVS: Normal heart rate and rhythm. Pulses normal. Normal S1 and S2 Respiratory: No respiratory distress. Breath sounds normal. No Wheezing. No rales Abdomen: Soft and nontender. No rigidity. No distention. Skin: Skin warm and dry. Normal skin color. Normal skin turgor. Extremities: No lower extremity edema. No Lacerations. No Rash Neuro: Oriented X 3. No motor deficit. No sensory deficit. Moving all extremities. No slurred speech. CN 2 through 12 grossly intact Psych: calm, cooperative, normal affect Course Course Course Narrative: This is an RME: Additional HPI, ROS, PE not included below will be deferred to primary provider. 53 yo m present requesting detox from heroin and cocaine has been clean for 8 months. wants his left arm redness checked out . Not si or hi ( he wants to be but isnt now) Plan- labs Medications Administered Discontinued Medications Generic Name Dose Route Start Last Admin Trade Name Freq PRN Reason Stop Dose Admin Cephalexin HCl 500 mg 10/01/23 22:26 10/01/23 22:47 Cephalexin 500 Mg Capsule PO 10/01/23 22:27 500 mg ONCE ONE Administration Doxycycline Monohydrate 100 mg 10/01/23 22:26 10/01/23 22:47 Doxycycline Monohydrate 100 Mg Capsule PO 10/01/23 22:27 100 mg ONCE ONE Administration Medical Decision Making Medical Decision Making MDM Narrative: - patient's hematology and chemistry baseline, LFTs within normal limits, creatinine function within normal - Care team consult pending, patient is not SI or HI. - the care team evaluated the patient at 01:00, patient remains alert, oriented x3, no SI no HI. Patient was given information for detox centers. Differential Diagnosis Differential Diagnoses: The differential diagnosis associated with the presentation includes ( Polysubstance abuse, homeless) Lab Data 10/01/23 19:07 10/01/23 19:07 Labs: Lab Results 10/01/23 10/01/23 10/01/23 Range/Units 19:07 19:07 19:07 WBC Cancelled 5.5 RBC Cancelled 4.65 Hgb Cancelled Hct MCV MCH MCHC RDW Plt Count MPV Immature Gran % (Auto) Neut % (Auto) Lymph % (Auto) [place] % (Auto) Eos % (Auto) Baso % (Auto) Lymph # (Auto) [place] # (Auto) Eos # (Auto) Baso # (Auto) Abs Immat Gran (auto) Absolute Neuts (auto) Absolute Nucleated RBC Nucleated RBC % (auto) Sodium Potassium Chloride Carbon Dioxide Anion Gap BUN Creatinine Estim Creat Clear Calc Estimated GFR Random Glucose Calcium Total Bilirubin AST ALT Alkaline Phosphatase Total Protein Albumin Urine Color Urine Appearance Urine pH (5.0-9.0) Ur Specific [place] (1.005-1.025) Urine Protein (Neg-Trace) mg/dL Urine Glucose (UA) (Negative) mg/dL Urine Ketones (Negative) mg/dL Urine Blood (Negative) Urine Nitrite (Negative) Ur Leukocyte Esterase (Negative) Urine Opiates Screen (Not Detect) Urine Fentanyl Screen (Not Detect) Ur Barbiturates Screen (Not Detect) Ur Phencyclidine Scrn (Not Detect) Ur Amphetamines Screen (Not Detect) U Benzodiazepines Scrn (Not Detect) Urine Cocaine Screen (Not Detect) U Marijuana (THC) Screen (Not Detect) Ethyl Alcohol mg/dL 10/01/23 10/01/23 10/01/23 Range/Units 19:07 19:07 19:07 WBC RBC Hgb 12.2 L Hct Cancelled 37.2 L MCV Cancelled 80.0 MCH Cancelled MCHC RDW Plt Count MPV Immature Gran % (Auto) Neut % (Auto) Lymph % (Auto) [place] % (Auto) Eos % (Auto) Baso % (Auto) Lymph # (Auto) [place] # (Auto) Eos # (Auto) Baso # (Auto) Abs Immat Gran (auto) Absolute Neuts (auto) Absolute Nucleated RBC Nucleated RBC % (auto) Sodium Potassium Chloride Carbon Dioxide Anion Gap BUN Creatinine Estim Creat Clear Calc Estimated GFR Random Glucose Calcium Total Bilirubin AST ALT Alkaline Phosphatase Total Protein Albumin Urine Color Urine Appearance Urine pH (5.0-9.0) Ur Specific [place] (1.005-1.025) Urine Protein (Neg-Trace) mg/dL Urine Glucose (UA) (Negative) mg/dL Urine Ketones (Negative) mg/dL Urine Blood (Negative) Urine Nitrite (Negative) Ur Leukocyte Esterase (Negative) Urine Opiates Screen (Not Detect) Urine Fentanyl Screen (Not Detect) Ur Barbiturates Screen (Not Detect) Ur Phencyclidine Scrn (Not Detect) Ur Amphetamines Screen (Not Detect) U Benzodiazepines Scrn (Not Detect) Urine Cocaine Screen (Not Detect) U Marijuana (THC) Screen (Not Detect) Ethyl Alcohol mg/dL 10/01/23 10/01/23 10/01/23 Range/Units 19:07 19:07 19:07 WBC RBC Hgb Hct MCV MCH 26.2 L MCHC Cancelled 32.8 RDW Cancelled 14.6 Plt Count Cancelled MPV Immature Gran % (Auto) Neut % (Auto) Lymph % (Auto) [place] % (Auto) Eos % (Auto) Baso % (Auto) Lymph # (Auto) [place] # (Auto) Eos # (Auto) Baso # (Auto) Abs Immat Gran (auto) Absolute Neuts (auto) Absolute Nucleated RBC Nucleated RBC % (auto) Sodium Potassium Chloride Carbon Dioxide Anion Gap BUN Creatinine Estim Creat Clear Calc Estimated GFR Random Glucose Calcium Total Bilirubin AST ALT Alkaline Phosphatase Total Protein Albumin Urine Color Urine Appearance Urine pH (5.0-9.0) Ur Specific [place] (1.005-1.025) Urine Protein (Neg-Trace) mg/dL Urine Glucose (UA) (Negative) mg/dL Urine Ketones (Negative) mg/dL Urine Blood (Negative) Urine Nitrite (Negative) Ur Leukocyte Esterase (Negative) Urine Opiates Screen (Not Detect) Urine Fentanyl Screen (Not Detect) Ur Barbiturates Screen (Not Detect) Ur Phencyclidine Scrn (Not Detect) Ur Amphetamines Screen (Not Detect) U Benzodiazepines Scrn (Not Detect) Urine Cocaine Screen (Not Detect) U Marijuana (THC) Screen (Not Detect) Ethyl Alcohol mg/dL 10/01/23 10/01/2324 Range/Units 19:07 19:07 19:07 WBC RBC Hgb Hct MCV MCH MCHC RDW Plt Count 235 MPV Cancelled 11.2 Immature Gran % (Auto) Cancelled 0.2 Neut % (Auto) Cancelled Lymph % (Auto) [place] % (Auto) Eos % (Auto) Baso % (Auto) Lymph # (Auto) [place] # (Auto) Eos # (Auto) Baso # (Auto) Abs Immat Gran (auto) Absolute Neuts (auto) Absolute Nucleated RBC Nucleated RBC % (auto) Sodium Potassium Chloride Carbon Dioxide Anion Gap BUN Creatinine Estim Creat Clear Calc Estimated GFR Random Glucose Calcium Total Bilirubin AST ALT Alkaline Phosphatase Total Protein Albumin Urine Color Urine Appearance Urine pH (5.0-9.0) Ur Specific [place] (1.005-1.025) Urine Protein (Neg-Trace) mg/dL Urine Glucose (UA) (Negative) mg/dL Urine Ketones (Negative) mg/dL Urine Blood (Negative) Urine Nitrite (Negative) Ur Leukocyte Esterase (Negative) Urine Opiates Screen (Not Detect) Urine Fentanyl Screen (Not Detect) Ur Barbiturates Screen (Not Detect) Ur Phencyclidine Scrn (Not Detect) Ur Amphetamines Screen (Not Detect) U Benzodiazepines Scrn (Not Detect) Urine Cocaine Screen (Not Detect) U Marijuana (THC) Screen (Not Detect) Ethyl Alcohol mg/dL 10/01/23 10/01/23 10/01/23 Range/Units 19:07 19:07 19:07 WBC RBC Hgb Hct MCV MCH MCHC RDW Plt Count MPV Immature Gran % (Auto) Neut % (Auto) 53.1 Lymph % (Auto) Cancelled 30.3 [place] % (Auto) Cancelled 11.1 H Eos % (Auto) Cancelled Baso % (Auto) Lymph # (Auto) [place] # (Auto) Eos # (Auto) Baso # (Auto) Abs Immat Gran (auto) Absolute Neuts (auto) Absolute Nucleated RBC Nucleated RBC % (auto) Sodium Potassium Chloride Carbon Dioxide Anion Gap BUN Creatinine Estim Creat Clear Calc Estimated GFR Random Glucose Calcium Total Bilirubin AST ALT Alkaline Phosphatase Total Protein Albumin Urine Color Urine Appearance Urine pH (5.0-9.0) Ur Specific [place] (1.005-1.025) Urine Protein (Neg-Trace) mg/dL Urine Glucose (UA) (Negative) mg/dL Urine Ketones (Negative) mg/dL Urine Blood (Negative) Urine Nitrite (Negative) Ur Leukocyte Esterase (Negative) Urine Opiates Screen (Not Detect) Urine Fentanyl Screen (Not Detect) Ur Barbiturates Screen (Not Detect) Ur Phencyclidine Scrn (Not Detect) Ur Amphetamines Screen (Not Detect) U Benzodiazepines Scrn (Not Detect) Urine Cocaine Screen (Not Detect) U Marijuana (THC) Screen (Not Detect) Ethyl Alcohol mg/dL 10/01/23 10/01/23 10/01/23 Range/Units 19:07 19:07 19:07 WBC RBC Hgb Hct MCV MCH MCHC RDW Plt Count MPV Immature Gran % (Auto) Neut % (Auto) Lymph % (Auto) [place] % (Auto) Eos % (Auto) 4.4 H Baso % (Auto) Cancelled 0.9 Lymph # (Auto) Cancelled 1.7 [place] # (Auto) Cancelled Eos # (Auto) Baso # (Auto) Abs Immat Gran (auto) Absolute Neuts (auto) Absolute Nucleated RBC Nucleated RBC % (auto) Sodium Potassium Chloride Carbon Dioxide Anion Gap BUN Creatinine Estim Creat Clear Calc Estimated GFR Random Glucose Calcium Total Bilirubin AST ALT Alkaline Phosphatase Total Protein Albumin Urine Color Urine Appearance Urine pH (5.0-9.0) Ur Specific [place] (1.005-1.025) Urine Protein (Neg-Trace) mg/dL Urine Glucose (UA) (Negative) mg/dL Urine Ketones (Negative) mg/dL Urine Blood (Negative) Urine Nitrite (Negative) Ur Leukocyte Esterase (Negative) Urine Opiates Screen (Not Detect) Urine Fentanyl Screen (Not Detect) Ur Barbiturates Screen (Not Detect) Ur Phencyclidine Scrn (Not Detect) Ur Amphetamines Screen (Not Detect) U Benzodiazepines Scrn (Not Detect) Urine Cocaine Screen (Not Detect) U Marijuana (THC) Screen (Not Detect) Ethyl Alcohol mg/dL 10/01/23 10/01/23 10/01/23 Range/Units 19:07 19:07 19:07 WBC RBC Hgb Hct MCV MCH MCHC RDW Plt Count MPV Immature Gran % (Auto) Neut % (Auto) Lymph % (Auto) [place] % (Auto) Eos % (Auto) Baso % (Auto) Lymph # (Auto) [place] # (Auto) 0.6 Eos # (Auto) Cancelled 0.2 Baso # (Auto) Cancelled 0.1 Abs Immat Gran (auto) Cancelled Absolute Neuts (auto) Absolute Nucleated RBC Nucleated RBC % (auto) Sodium Potassium Chloride Carbon Dioxide Anion Gap BUN Creatinine Estim Creat Clear Calc Estimated GFR Random Glucose Calcium Total Bilirubin AST ALT Alkaline Phosphatase Total Protein Albumin Urine Color Urine Appearance Urine pH (5.0-9.0) Ur Specific [place] (1.005-1.025) Urine Protein (Neg-Trace) mg/dL Urine Glucose (UA) (Negative) mg/dL Urine Ketones (Negative) mg/dL Urine Blood (Negative) Urine Nitrite (Negative) Ur Leukocyte Esterase (Negative) Urine Opiates Screen (Not Detect) Urine Fentanyl Screen (Not Detect) Ur Barbiturates Screen (Not Detect) Ur Phencyclidine Scrn (Not Detect) Ur Amphetamines Screen (Not Detect) U Benzodiazepines Scrn (Not Detect) Urine Cocaine Screen (Not Detect) U Marijuana (THC) Screen (Not Detect) Ethyl Alcohol mg/dL 10/01/23 10/01/23 10/01/23 Range/Units 19:07 19:07 19:07 WBC RBC Hgb Hct MCV MCH MCHC RDW Plt Count MPV Immature Gran % (Auto) Neut % (Auto) Lymph % (Auto) [place] % (Auto) Eos % (Auto) Baso % (Auto) Lymph # (Auto) [place] # (Auto) Eos # (Auto) Baso # (Auto) Abs Immat Gran (auto) 0.01 Absolute Neuts (auto) Cancelled 2.9 Absolute Nucleated RBC Cancelled 0.000 Nucleated RBC % (auto) Cancelled Sodium Potassium Chloride Carbon Dioxide Anion Gap BUN Creatinine Estim Creat Clear Calc Estimated GFR Random Glucose Calcium Total Bilirubin AST ALT Alkaline Phosphatase Total Protein Albumin Urine Color Urine Appearance Urine pH (5.0-9.0) Ur Specific [place] (1.005-1.025) Urine Protein (Neg-Trace) mg/dL Urine Glucose (UA) (Negative) mg/dL Urine Ketones (Negative) mg/dL Urine Blood (Negative) Urine Nitrite (Negative) Ur Leukocyte Esterase (Negative) Urine Opiates Screen (Not Detect) Urine Fentanyl Screen (Not Detect) Ur Barbiturates Screen (Not Detect) Ur Phencyclidine Scrn (Not Detect) Ur Amphetamines Screen (Not Detect) U Benzodiazepines Scrn (Not Detect) Urine Cocaine Screen (Not Detect) U Marijuana (THC) Screen (Not Detect) Ethyl Alcohol mg/dL 10/01/23 10/01/23 10/01/23 Range/Units 19:07 19:07 19:07 WBC RBC Hgb Hct MCV MCH MCHC RDW Plt Count MPV Immature Gran % (Auto) Neut % (Auto) Lymph % (Auto) [place] % (Auto) Eos % (Auto) Baso % (Auto) Lymph # (Auto) [place] # (Auto) Eos # (Auto) Baso # (Auto) Abs Immat Gran (auto) Absolute Neuts (auto) Absolute Nucleated RBC Nucleated RBC % (auto) 0.0 Sodium Cancelled 138 Potassium Cancelled 3.8 Chloride Cancelled Carbon Dioxide Anion Gap BUN Creatinine Estim Creat Clear Calc Estimated GFR Random Glucose Calcium Total Bilirubin AST ALT Alkaline Phosphatase Total Protein Albumin Urine Color Urine Appearance Urine pH (5.0-9.0) Ur Specific [place] (1.005-1.025) Urine Protein (Neg-Trace) mg/dL Urine Glucose (UA) (Negative) mg/dL Urine Ketones (Negative) mg/dL Urine Blood (Negative) Urine Nitrite (Negative) Ur Leukocyte Esterase (Negative) Urine Opiates Screen (Not Detect) Urine Fentanyl Screen (Not Detect) Ur Barbiturates Screen (Not Detect) Ur Phencyclidine Scrn (Not Detect) Ur Amphetamines Screen (Not Detect) U Benzodiazepines Scrn (Not Detect) Urine Cocaine Screen (Not Detect) U Marijuana (THC) Screen (Not Detect) Ethyl Alcohol mg/dL 10/01/23 10/01/23 10/01/23 Range/Units 19:07 19:07 19:07 WBC RBC Hgb Hct MCV MCH MCHC RDW Plt Count MPV Immature Gran % (Auto) Neut % (Auto) Lymph % (Auto) [place] % (Auto) Eos % (Auto) Baso % (Auto) Lymph # (Auto) [place] # (Auto) Eos # (Auto) Baso # (Auto) Abs Immat Gran (auto) Absolute Neuts (auto) Absolute Nucleated RBC Nucleated RBC % (auto) Sodium Potassium Chloride 105 Carbon Dioxide Cancelled 24 Anion Gap Cancelled 13 BUN Cancelled Creatinine Estim Creat Clear Calc Estimated GFR Random Glucose Calcium Total Bilirubin AST ALT Alkaline Phosphatase Total Protein Albumin Urine Color Urine Appearance Urine pH (5.0-9.0) Ur Specific [place] (1.005-1.025) Urine Protein (Neg-Trace) mg/dL Urine Glucose (UA) (Negative) mg/dL Urine Ketones (Negative) mg/dL Urine Blood (Negative) Urine Nitrite (Negative) Ur Leukocyte Esterase (Negative) Urine Opiates Screen (Not Detect) Urine Fentanyl Screen (Not Detect) Ur Barbiturates Screen (Not Detect) Ur Phencyclidine Scrn (Not Detect) Ur Amphetamines Screen (Not Detect) U Benzodiazepines Scrn (Not Detect) Urine Cocaine Screen (Not Detect) U Marijuana (THC) Screen (Not Detect) Ethyl Alcohol mg/dL 10/01/23 10/01/23 10/01/23 Range/Units 19:07 19:07 19:07 WBC RBC Hgb Hct MCV MCH MCHC RDW Plt Count MPV Immature Gran % (Auto) Neut % (Auto) Lymph % (Auto) [place] % (Auto) Eos % (Auto) Baso % (Auto) Lymph # (Auto) [place] # (Auto) Eos # (Auto) Baso # (Auto) Abs Immat Gran (auto) Absolute Neuts (auto) Absolute Nucleated RBC Nucleated RBC % (auto) Sodium Potassium Chloride Carbon Dioxide Anion Gap BUN 14 Creatinine Cancelled 1.15 Estim Creat Clear Calc Cancelled 67.1 Estimated GFR Cancelled Random Glucose Calcium Total Bilirubin AST ALT Alkaline Phosphatase Total Protein Albumin Urine Color Urine Appearance Urine pH (5.0-9.0) Ur Specific [place] (1.005-1.025) Urine Protein (Neg-Trace) mg/dL Urine Glucose (UA) (Negative) mg/dL Urine Ketones (Negative) mg/dL Urine Blood (Negative) Urine Nitrite (Negative) Ur Leukocyte Esterase (Negative) Urine Opiates Screen (Not Detect) Urine Fentanyl Screen (Not Detect) Ur Barbiturates Screen (Not Detect) Ur Phencyclidine Scrn (Not Detect) Ur Amphetamines Screen (Not Detect) U Benzodiazepines Scrn (Not Detect) Urine Cocaine Screen (Not Detect) U Marijuana (THC) Screen (Not Detect) Ethyl Alcohol mg/dL 10/01/23 10/01/23 10/01/23 Range/Units 19:07 19:07 19:07 WBC RBC Hgb Hct MCV MCH MCHC RDW Plt Count MPV Immature Gran % (Auto) Neut % (Auto) Lymph % (Auto) [place] % (Auto) Eos % (Auto) Baso % (Auto) Lymph # (Auto) [place] # (Auto) Eos # (Auto) Baso # (Auto) Abs Immat Gran (auto) Absolute Neuts (auto) Absolute Nucleated RBC Nucleated RBC % (auto) Sodium Potassium Chloride Carbon Dioxide Anion Gap BUN Creatinine Estim Creat Clear Calc Estimated GFR > 60 Random Glucose Cancelled 132 H Calcium Cancelled 9.1 Total Bilirubin Cancelled AST ALT Alkaline Phosphatase Total Protein Albumin Urine Color Urine Appearance Urine pH (5.0-9.0) Ur Specific [place] (1.005-1.025) Urine Protein (Neg-Trace) mg/dL Urine Glucose (UA) (Negative) mg/dL Urine Ketones (Negative) mg/dL Urine Blood (Negative) Urine Nitrite (Negative) Ur Leukocyte Esterase (Negative) Urine Opiates Screen (Not Detect) Urine Fentanyl Screen (Not Detect) Ur Barbiturates Screen (Not Detect) Ur Phencyclidine Scrn (Not Detect) Ur Amphetamines Screen (Not Detect) U Benzodiazepines Scrn (Not Detect) Urine Cocaine Screen (Not Detect) U Marijuana (THC) Screen (Not Detect) Ethyl Alcohol mg/dL 10/01/23 10/01/23 10/01/23 Range/Units 19:07 19:07 19:07 WBC RBC Hgb Hct MCV MCH MCHC RDW Plt Count MPV Immature Gran % (Auto) Neut % (Auto) Lymph % (Auto) [place] % (Auto) Eos % (Auto) Baso % (Auto) Lymph # (Auto) [place] # (Auto) Eos # (Auto) Baso # (Auto) Abs Immat Gran (auto) Absolute Neuts (auto) Absolute Nucleated RBC Nucleated RBC % (auto) Sodium Potassium Chloride Carbon Dioxide Anion Gap BUN Creatinine Estim Creat Clear Calc Estimated GFR Random Glucose Calcium Total Bilirubin 0.6 AST Cancelled 27 ALT Cancelled 22 Alkaline Phosphatase Cancelled Total Protein Albumin Urine Color Urine Appearance Urine pH (5.0-9.0) Ur Specific [place] (1.005-1.025) Urine Protein (Neg-Trace) mg/dL Urine Glucose (UA) (Negative) mg/dL Urine Ketones (Negative) mg/dL Urine Blood (Negative) Urine Nitrite (Negative) Ur Leukocyte Esterase (Negative) Urine Opiates Screen (Not Detect) Urine Fentanyl Screen (Not Detect) Ur Barbiturates Screen (Not Detect) Ur Phencyclidine Scrn (Not Detect) Ur Amphetamines Screen (Not Detect) U Benzodiazepines Scrn (Not Detect) Urine Cocaine Screen (Not Detect) U Marijuana (THC) Screen (Not Detect) Ethyl Alcohol mg/dL 10/01/23 10/01/23 10/01/23 Range/Units 19:07 19:07 19:07 WBC RBC Hgb Hct MCV MCH MCHC RDW Plt Count MPV Immature Gran % (Auto) Neut % (Auto) Lymph % (Auto) [place] % (Auto) Eos % (Auto) Baso % (Auto) Lymph # (Auto) [place] # (Auto) Eos # (Auto) Baso # (Auto) Abs Immat Gran (auto) Absolute Neuts (auto) Absolute Nucleated RBC Nucleated RBC % (auto) Sodium Potassium Chloride Carbon Dioxide Anion Gap BUN Creatinine Estim Creat Clear Calc Estimated GFR Random Glucose Calcium Total Bilirubin AST ALT Alkaline Phosphatase 60 Total Protein Cancelled 7.7 Albumin Cancelled 4.0 Urine Color Urine Appearance Urine pH (5.0-9.0) Ur Specific [place] (1.005-1.025) Urine Protein (Neg-Trace) mg/dL Urine Glucose (UA) (Negative) mg/dL Urine Ketones (Negative) mg/dL Urine Blood (Negative) Urine Nitrite (Negative) Ur Leukocyte Esterase (Negative) Urine Opiates Screen (Not Detect) Urine Fentanyl Screen (Not Detect) Ur Barbiturates Screen (Not Detect) Ur Phencyclidine Scrn (Not Detect) Ur Amphetamines Screen (Not Detect) U Benzodiazepines Scrn (Not Detect) Urine Cocaine Screen (Not Detect) U Marijuana (THC) Screen (Not Detect) Ethyl Alcohol < 10 mg/dL 10/01/23 Range/Units 22:34 WBC RBC Hgb Hct MCV MCH MCHC RDW Plt Count MPV Immature Gran % (Auto) Neut % (Auto) Lymph % (Auto) [place] % (Auto) Eos % (Auto) Baso % (Auto) Lymph # (Auto) [place] # (Auto) Eos # (Auto) Baso # (Auto) Abs Immat Gran (auto) Absolute Neuts (auto) Absolute Nucleated RBC Nucleated RBC % (auto) Sodium Potassium Chloride Carbon Dioxide Anion Gap BUN Creatinine Estim Creat Clear Calc Estimated GFR Random Glucose Calcium Total Bilirubin AST ALT Alkaline Phosphatase Total Protein Albumin Urine Color Yellow Urine Appearance Clear Urine pH 6.0 (5.0-9.0) Ur Specific [place] 1.015 (1.005-1.025) Urine Protein Negative (Neg-Trace) mg/dL Urine Glucose (UA) Negative (Negative) mg/dL Urine Ketones Negative (Negative) mg/dL Urine Blood Negative (Negative) Urine Nitrite Negative (Negative) Ur Leukocyte Esterase Negative (Negative) Urine Opiates Screen Not Detected (Not Detect) Urine Fentanyl Screen POSITIVE H (Not Detect) Ur Barbiturates Screen Not Detected (Not Detect) Ur Phencyclidine Scrn Not Detected (Not Detect) Ur Amphetamines Screen Not Detected (Not Detect) U Benzodiazepines Scrn POSITIVE H (Not Detect) Urine Cocaine Screen POSITIVE H (Not Detect) U Marijuana (THC) Screen Not Detected (Not Detect) Ethyl Alcohol mg/dL Discharge Plan Discharge Clinical Impression: Substance abuse, Homeless Patient Disposition: Home, Self-Care Instructions: Polysubstance Abuse (ED) Additional Instructions: Please follow-up with your primary care physician tomorrow. If you have any worsening or new symptoms, please return to the emergency room or call 911 Prescriptions: No Action No Known Home Meds
[2023-10-01 19:11] LABS: MANUAL DIFF FLAG NO
[2023-10-01 19:25] LABS: Basophils Absolute Auto 0.1 X10*3/uL (0.0-0.2); Basophils Percent Auto 0.9 % (0-2); Eosinophils Absolute Auto 0.2 X10*3/uL (0.0-0.4); Eosinophils Percent Auto 4.4 % (0-4); Hematocrit 37.2 % (42.0-52.0); Hemoglobin 12.2 g/dl (14.0-18.0); Imm Gran Abs Auto 0.01 X10*3/uL (0.00-0.03); Imm Gran Pct Auto 0.2 % (0.0-0.4); Lymphocytes Absolute Auto 1.7 X10*3/uL (1.2-4.9); Lymphocytes Percent Auto 30.3 % (20-40); Mean Corpuscular HGB Conc 32.8 g/dl (31.0-36.0); Mean Corpuscular Hemoglobin 26.2 pg (27.0-33.0); Mean Platelet Volume 11.2 fL (9.4-12.4); Monocytes Absolute Auto 0.6 X10*3/uL (0.1-1.2); Monocytes Percent Auto 11.1 % (2-11); Neutrophils Absolute Auto 2.9 x10*3/uL (2.0-8.3); Neutrophils Percent Auto 53.1 % (45-73); Platelet Count 235 X10*3/uL (160-400); Red Blood Count 4.65 X10*6/uL (4.60-5.80); Red Cell Distribution Width 14.6 % (11.0-16.0); White Blood Count 5.5 X10*3/uL (4.8-10.8)
[2023-10-01 19:26] LABS: Alanine Aminotransferase 22 U/L (0-40); Alkaline Phosphatase 60 U/L (39-117); Anion Gap 13 (12-20); Aspartate Amino Transferase 27 U/L (5-37); Bilirubin Total 0.6 mg/dL (0.0-1.0); Blood Urea Nitrogen 14 mg/dL (9-16); Calcium 9.1 mg/dL (8.4-10.2); Carbon Dioxide 24 mmol/L (22-29); Chloride 105 mmol/L (96-108); Creatinine Clr Calc Pharmacy 67.1; Estimated Glomerular Filt Rate > 60; Glucose Random 132 mg/dL (60-115); Potassium 3.8 mmol/L (3.3-5.1); Sodium 138 mmol/L (135-145); Total Protein 7.7 g/dL (6.5-8.0)
[2023-10-01 21:57] VITALS: BP 135/79; PULSE 93; RESP 14; TEMP 37.2; O2SAT 94
[2023-10-01 22:15] LABS: Ethanol < 10 mg/dL
--- NOTE | 2023-10-01 22:26 | ED_ITS ---
HPI - Psych General Chief Complaint: ETOH/Substance Use Stated Complaint: arm infection Time Seen by Provider: 10/01/23 21:41 Source: patient Mode of arrival: ambulatory Limitations: no limitations History of Present Illness HPI Narrative: patient comes to the emergency room seeking information for Related Data Home Medications Medication Instructions Recorded Confirmed No Known Home Meds 12/02/21 12/02/21 Allergies Allergy/AdvReac Type Severity Reaction Status Date / Time No Known Allergies Allergy Verified 10/01/23 18:31 [No Known Allergies*] [facility] Past Medical History Medical History No known health problems Opioid use disorder Social History Social History Patient Tobacco Use Status: Tobacco use Unknown Advance Directives: No Advance Directives Information Provided: No service: No Current occupational status: unemployed Physical Exam 2 Vital Signs: Vital Signs: Last Vital Signs Temp 99.0 F 10/01/23 21:57 Pulse 93 10/01/23 21:57 Resp 14 10/01/23 21:57 BP 135/79 10/01/23 21:57 Pulse Ox 94 10/01/23 21:57 O2 Del Method Room Air 10/01/23 21:57 BMI result Body Mass Index 28.3 Medical Decision Making Lab Data 10/01/23 19:07 10/01/23 19:07 Labs: Lab Results 10/01/23 10/01/23 10/01/23 Range/Units 19:07 19:07 19:07 WBC Cancelled 5.5 RBC Cancelled 4.65 Hgb Cancelled Hct MCV MCH MCHC RDW Plt Count MPV Immature Gran % (Auto) Neut % (Auto) Lymph % (Auto) [place] % (Auto) Eos % (Auto) Baso % (Auto) Lymph # (Auto) [place] # (Auto) Eos # (Auto) Baso # (Auto) Abs Immat Gran (auto) Absolute Neuts (auto) Absolute Nucleated RBC Nucleated RBC % (auto) Sodium Potassium Chloride Carbon Dioxide Anion Gap BUN Creatinine Estim Creat Clear Calc Estimated GFR Random Glucose Calcium Total Bilirubin AST ALT Alkaline Phosphatase Total Protein Albumin Ethyl Alcohol mg/dL 10/01/23 10/01/23 10/01/23 Range/Units 19:07 19:07 19:07 WBC RBC Hgb 12.2 L Hct Cancelled 37.2 L MCV Cancelled 80.0 MCH Cancelled MCHC RDW Plt Count MPV Immature Gran % (Auto) Neut % (Auto) Lymph % (Auto) [place] % (Auto) Eos % (Auto) Baso % (Auto) Lymph # (Auto) [place] # (Auto) Eos # (Auto) Baso # (Auto) Abs Immat Gran (auto) Absolute Neuts (auto) Absolute Nucleated RBC Nucleated RBC % (auto) Sodium Potassium Chloride Carbon Dioxide Anion Gap BUN Creatinine Estim Creat Clear Calc Estimated GFR Random Glucose Calcium Total Bilirubin AST ALT Alkaline Phosphatase Total Protein Albumin Ethyl Alcohol mg/dL 10/01/23 10/01/23 10/01/23 Range/Units 19:07 19:07 19:07 WBC RBC Hgb Hct MCV MCH 26.2 L MCHC Cancelled 32.8 RDW Cancelled 14.6 Plt Count Cancelled MPV Immature Gran % (Auto) Neut % (Auto) Lymph % (Auto) [place] % (Auto) Eos % (Auto) Baso % (Auto) Lymph # (Auto) [place] # (Auto) Eos # (Auto) Baso # (Auto) Abs Immat Gran (auto) Absolute Neuts (auto) Absolute Nucleated RBC Nucleated RBC % (auto) Sodium Potassium Chloride Carbon Dioxide Anion Gap BUN Creatinine Estim Creat Clear Calc Estimated GFR Random Glucose Calcium Total Bilirubin AST ALT Alkaline Phosphatase Total Protein Albumin Ethyl Alcohol mg/dL 10/01/23 10/01/23 10/01/23 Range/Units 19:07 19:07 19:07 WBC RBC Hgb Hct MCV MCH MCHC RDW Plt Count 235 MPV Cancelled 11.2 Immature Gran % (Auto) Cancelled 0.2 Neut % (Auto) Cancelled Lymph % (Auto) [place] % (Auto) Eos % (Auto) Baso % (Auto) Lymph # (Auto) [place] # (Auto) Eos # (Auto) Baso # (Auto) Abs Immat Gran (auto) Absolute Neuts (auto) Absolute Nucleated RBC Nucleated RBC % (auto) Sodium Potassium Chloride Carbon Dioxide Anion Gap BUN Creatinine Estim Creat Clear Calc Estimated GFR Random Glucose Calcium Total Bilirubin AST ALT Alkaline Phosphatase Total Protein Albumin Ethyl Alcohol mg/dL 10/01/23 10/01/23 10/01/23 Range/Units 19:07 19:07 19:07 WBC RBC Hgb Hct MCV MCH MCHC RDW Plt Count MPV Immature Gran % (Auto) Neut % (Auto) 53.1 Lymph % (Auto) Cancelled 30.3 [place] % (Auto) Cancelled 11.1 H Eos % (Auto) Cancelled Baso % (Auto) Lymph # (Auto) [place] # (Auto) Eos # (Auto) Baso # (Auto) Abs Immat Gran (auto) Absolute Neuts (auto) Absolute Nucleated RBC Nucleated RBC % (auto) Sodium Potassium Chloride Carbon Dioxide Anion Gap BUN Creatinine Estim Creat Clear Calc Estimated GFR Random Glucose Calcium Total Bilirubin AST ALT Alkaline Phosphatase Total Protein Albumin Ethyl Alcohol mg/dL 10/01/23 10/01/23 10/01/23 Range/Units 19:07 19:07 19:07 WBC RBC Hgb Hct MCV MCH MCHC RDW Plt Count MPV Immature Gran % (Auto) Neut % (Auto) Lymph % (Auto) [place] % (Auto) Eos % (Auto) 4.4 H Baso % (Auto) Cancelled 0.9 Lymph # (Auto) Cancelled 1.7 [place] # (Auto) Cancelled Eos # (Auto) Baso # (Auto) Abs Immat Gran (auto) Absolute Neuts (auto) Absolute Nucleated RBC Nucleated RBC % (auto) Sodium Potassium Chloride Carbon Dioxide Anion Gap BUN Creatinine Estim Creat Clear Calc Estimated GFR Random Glucose Calcium Total Bilirubin AST ALT Alkaline Phosphatase Total Protein Albumin Ethyl Alcohol mg/dL 10/01/23 10/01/23 10/01/23 Range/Units 19:07 19:07 19:07 WBC RBC Hgb Hct MCV MCH MCHC RDW Plt Count MPV Immature Gran % (Auto) Neut % (Auto) Lymph % (Auto) [place] % (Auto) Eos % (Auto) Baso % (Auto) Lymph # (Auto) [place] # (Auto) 0.6 Eos # (Auto) Cancelled 0.2 Baso # (Auto) Cancelled 0.1 Abs Immat Gran (auto) Cancelled Absolute Neuts (auto) Absolute Nucleated RBC Nucleated RBC % (auto) Sodium Potassium Chloride Carbon Dioxide Anion Gap BUN Creatinine Estim Creat Clear Calc Estimated GFR Random Glucose Calcium Total Bilirubin AST ALT Alkaline Phosphatase Total Protein Albumin Ethyl Alcohol mg/dL 10/01/23 10/01/23 10/01/23 Range/Units 19:07 19:07 19:07 WBC RBC Hgb Hct MCV MCH MCHC RDW Plt Count MPV Immature Gran % (Auto) Neut % (Auto) Lymph % (Auto) [place] % (Auto) Eos % (Auto) Baso % (Auto) Lymph # (Auto) [place] # (Auto) Eos # (Auto) Baso # (Auto) Abs Immat Gran (auto) 0.01 Absolute Neuts (auto) Cancelled 2.9 Absolute Nucleated RBC Cancelled 0.000 Nucleated RBC % (auto) Cancelled Sodium Potassium Chloride Carbon Dioxide Anion Gap BUN Creatinine Estim Creat Clear Calc Estimated GFR Random Glucose Calcium Total Bilirubin AST ALT Alkaline Phosphatase Total Protein Albumin Ethyl Alcohol mg/dL 10/01/23 10/01/23 10/01/23 Range/Units 19:07 19:07 19:07 WBC RBC Hgb Hct MCV MCH MCHC RDW Plt Count MPV Immature Gran % (Auto) Neut % (Auto) Lymph % (Auto) [place] % (Auto) Eos % (Auto) Baso % (Auto) Lymph # (Auto) [place] # (Auto) Eos # (Auto) Baso # (Auto) Abs Immat Gran (auto) Absolute Neuts (auto) Absolute Nucleated RBC Nucleated RBC % (auto) 0.0 Sodium Cancelled 138 Potassium Cancelled 3.8 Chloride Cancelled Carbon Dioxide Anion Gap BUN Creatinine Estim Creat Clear Calc Estimated GFR Random Glucose Calcium Total Bilirubin AST ALT Alkaline Phosphatase Total Protein Albumin Ethyl Alcohol mg/dL 10/01/23 10/01/23 10/01/23 Range/Units 19:07 19:07 19:07 WBC RBC Hgb Hct MCV MCH MCHC RDW Plt Count MPV Immature Gran % (Auto) Neut % (Auto) Lymph % (Auto) [place] % (Auto) Eos % (Auto) Baso % (Auto) Lymph # (Auto) [place] # (Auto) Eos # (Auto) Baso # (Auto) Abs Immat Gran (auto) Absolute Neuts (auto) Absolute Nucleated RBC Nucleated RBC % (auto) Sodium Potassium Chloride 105 Carbon Dioxide Cancelled 24 Anion Gap Cancelled 13 BUN Cancelled Creatinine Estim Creat Clear Calc Estimated GFR Random Glucose Calcium Total Bilirubin AST ALT Alkaline Phosphatase Total Protein Albumin Ethyl Alcohol mg/dL 10/01/23 10/01/23 10/01/23 Range/Units 19:07 19:07 19:07 WBC RBC Hgb Hct MCV MCH MCHC RDW Plt Count MPV Immature Gran % (Auto) Neut % (Auto) Lymph % (Auto) [place] % (Auto) Eos % (Auto) Baso % (Auto) Lymph # (Auto) [place] # (Auto) Eos # (Auto) Baso # (Auto) Abs Immat Gran (auto) Absolute Neuts (auto) Absolute Nucleated RBC Nucleated RBC % (auto) Sodium Potassium Chloride Carbon Dioxide Anion Gap BUN 14 Creatinine Cancelled 1.15 Estim Creat Clear Calc Cancelled 67.1 Estimated GFR Cancelled Random Glucose Calcium Total Bilirubin AST ALT Alkaline Phosphatase Total Protein Albumin Ethyl Alcohol mg/dL 10/01/23 10/01/23 10/01/23 Range/Units 19:07 19:07 19:07 WBC RBC Hgb Hct MCV MCH MCHC RDW Plt Count MPV Immature Gran % (Auto) Neut % (Auto) Lymph % (Auto) [place] % (Auto) Eos % (Auto) Baso % (Auto) Lymph # (Auto) [place] # (Auto) Eos # (Auto) Baso # (Auto) Abs Immat Gran (auto) Absolute Neuts (auto) Absolute Nucleated RBC Nucleated RBC % (auto) Sodium Potassium Chloride Carbon Dioxide Anion Gap BUN Creatinine Estim Creat Clear Calc Estimated GFR > 60 Random Glucose Cancelled 132 H Calcium Cancelled 9.1 Total Bilirubin Cancelled AST ALT Alkaline Phosphatase Total Protein Albumin Ethyl Alcohol mg/dL 10/01/23 10/01/23 10/01/23 Range/Units 19:07 19:07 19:07 WBC RBC Hgb Hct MCV MCH MCHC RDW Plt Count MPV Immature Gran % (Auto) Neut % (Auto) Lymph % (Auto) [place] % (Auto) Eos % (Auto) Baso % (Auto) Lymph # (Auto) [place] # (Auto) Eos # (Auto) Baso # (Auto) Abs Immat Gran (auto) Absolute Neuts (auto) Absolute Nucleated RBC Nucleated RBC % (auto) Sodium Potassium Chloride Carbon Dioxide Anion Gap BUN Creatinine Estim Creat Clear Calc Estimated GFR Random Glucose Calcium Total Bilirubin 0.6 AST Cancelled 27 ALT Cancelled 22 Alkaline Phosphatase Cancelled Total Protein Albumin Ethyl Alcohol mg/dL 10/01/23 10/01/23 10/01/23 Range/Units 19:07 19:07 19:07 WBC RBC Hgb Hct MCV MCH MCHC RDW Plt Count MPV Immature Gran % (Auto) Neut % (Auto) Lymph % (Auto) [place] % (Auto) Eos % (Auto) Baso % (Auto) Lymph # (Auto) [place] # (Auto) Eos # (Auto) Baso # (Auto) Abs Immat Gran (auto) Absolute Neuts (auto) Absolute Nucleated RBC Nucleated RBC % (auto) Sodium Potassium Chloride Carbon Dioxide Anion Gap BUN Creatinine Estim Creat Clear Calc Estimated GFR Random Glucose Calcium Total Bilirubin AST ALT Alkaline Phosphatase 60 Total Protein Cancelled 7.7 Albumin Cancelled 4.0 Ethyl Alcohol < 10 mg/dL Discharge Plan Discharge Prescriptions: No Action No Known Home Meds
[2023-10-01 22:44] LABS: Appearance Urine Clear; Color Urine Yellow; Glucose Urine UA Negative (Negative); Leukocyte Esterase Urine Negative (Negative); Nitrite Urine Negative (Negative); Specific Gravity - Urine 1.015 (1.005-1.025); Urine Blood Negative (Negative); Urine Ketones Negative (Negative); Urine Protein Negative (Neg-Trace)
[2023-10-01 22:47] LABS: Amphetamine Screen Urine Not Detected (Not Detect); Barbiturates, Urine Not Detected (Not Detect); Benzodiazepines Screen Urine POSITIVE (Not Detect); Cannabinoid Screen Urine Not Detected (Not Detect); Cocaine Screen Urine POSITIVE (Not Detect); Fentanyl, urine POSITIVE (Not Detect); Opiate Screen Urine Not Detected (Not Detect); Phencyclidine Screen Urine Not Detected (Not Detect)
[2023-10-01] MEDS: Doxycycline Monohydrate 100 MG CAPSULE PO (22:47)
[2023-10-01] MEDS: cephALEXin 500 MG CAPSULE PO (22:47)
[2023-10-02 01:24] VITALS: BP 135/79; PULSE 93; RESP 17; TEMP 37.2; O2SAT 98
== END 2023-10-02 01:38 | disposition home or self-care (01) ==
PROVIDERS: Physician Assistant; Emergency Provider Emergency Medicine
DX: L03.114 Cellulitis of left upper limb (principal); F11.10 Opioid abuse, uncomplicated; F14.10 Cocaine abuse, uncomplicated; Z79.899 Other long term (current) drug therapy
CPT/HCPCS: 36415; 80053; 80307; 81003; 85025; 99283; 99284

== ENCOUNTER 2024-05-07 13:08 | Emergency (ER) | payer MEDICAID, SELFPAY ==
--- NOTE | ~2024-05-07 | US_ITS ---
EXAMINATION: US TRIPLEX LOWER EXTREMITY, BILATERAL CLINICAL INFORMATION: Redness, pain, swelling COMPARISON: None available. TECHNIQUE: Color-flow triplex imaging with spectral analysis and compression Doppler were performed on the bilateral lower extremities. FINDINGS: Respiratory variation, normal compression and augmented flow are noted throughout the bilateral lower extremities. The visualized common femoral vein, superficial femoral vein, profunda femoral vein, popliteal vein and midcalf peroneal and posterior tibial venous segments show no evidence of deep venous thrombosis bilaterally. There is no Cunningham's cyst. Varicose veins noted in the calf. Prominent inguinal lymph nodes. US/US venous duplex LE BI IMPRESSION: No evidence of deep venous thrombosis involving the bilateral lower extremities. Electronically signed by: Stef Fleming MD 05/07/2024 03:37 PM EDT
[2024-05-07 13:10] VITALS: BP 116/71; PULSE 103; RESP 18; TEMP 36.4; O2SAT 97; BMI 22.4
--- NOTE | 2024-05-07 13:14 | ED_ITS ---
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 Patient reports he started using intranasal heroin at age 7, intravenous heroin at age 10. He has been in and out of several rehabs but always and ups relapsing. He wants detox. He reports being brought to the ER by a bystander after was found sitting on the side of the road. He is worried about infection in his legs, admits to continuing to inject IV drugs. He states he last injected last night. He reports over the last 3 weeks the left lower leg has developed significant pain, redness and swelling. It hurts to walk. Denies any fever or chills. He denies any shortness of breath or chest pain. He has not been on antibiotics recently. MD complaint: Bilateral lower extremity pain, left lower extremity redness, warmth, swell Onset (ago): week(s) Location: left, right and lower extremity Radiation: proximal and distal Severity: severe Quality: stabbing and aching Pain Consistency: constant Relieving factors: rest Exacerbating factors: movement Associated symptoms: denies other symptoms Treatments prior to arrival: none Related Data Previous Rx's ?Medication ?Instructions ?Recorded doxycycline hyclate 100 mg tablet 100 mg PO BID #14 tabs 05/08/24 Allergies Allergy/AdvReac Type Severity Reaction Status Date / Time No Known Allergies Allergy Verified 05/07/24 13:17 [No Known Allergies*] Review of Systems 2 Review of Systems: Yes all other systems are reviewed and are negative PMFSH Past Medical History Medical History Opioid use disorder No known health problems Social History Social History Patient Tobacco Use Status: Tobacco use Unknown Use of substances other than those prescribed or required for medical reasons: Yes Advance Directives: No Do you have a plan to hurt others: No Plan service: No Current occupational status: unemployed Physical Exam ED Vital Signs: Vital Signs - 24 hr 05/07/24 13:10 05/07/24 15:47 05/08/24 07:09 Temperature 97.6 F 98.9 F Pulse Rate 103 H 75 62 Respiratory Rate 18 16 18 Blood Pressure 116/71 101/56 L 128/83 Pulse Oximetry 97 97 100 Oxygen Delivery Method Room Air Room Air Room Air BMI result Body Mass Index 22.4 Appearance: Alert. Oriented X3. Unkempt and foul-smelling Head: normocephalic, atraumatic. Eyes: Pupils equal, round and reactive to light. ENT: Pharynx normal. No tonsillar swelling or exudate. Neck: Normal inspection. Neck supple. CVS: Normal heart rate and rhythm. Pulses normal. Respiratory: No respiratory distress. Breath sounds normal. Abdomen: Soft and nontender. +BS x4 Skin: Skin warm and dry. Normal skin color. Normal skin turgor. No rashes. Extremities: Lower extremities are dirty, old blood on the soles of the feet. There is moderate generalized swelling, erythema and warmth of the left lower leg with associated 2 cm abscess in the distal lower leg, fluctuant and indurated. Right medial calf with a 2 cm fluctuant abscess with no surrounding cellulitic changes. He has calf tenderness on the left side but not the right side. Neuro/psych: Oriented X 3. No motor deficit. No sensory deficit. CN II-XII intact. Normal speech and cognition. Course Course Course Narrative: This is a Rapid Medical Exam performed in triage by Bella Roldan PA-C. Full HPI, ROS and PE to be performed by primary ED provider. 53yo M w/PMHX KANDACE, substance abuse presenting to the ED c/o homelessness and bilateral LE swelling/erythema & pain w/difficulty ambulating secondary to pain. Admits is IVDA, uses heroin and cocaine. Admits does inject into legs. Bystander found patient in the street & brought him to the ED. states he is also interested in detox. PE: +B/l LE erythema, swelling, abscesses & skin picking Plan: Labs, blood Cx Reevaluation(s) Reevaluation #1: Medically cleared Physician observation started at 15:52. Patient placed in physician observation because patient is awaiting CARE team evaluation for the possible need of inpatient psych admission. At the time observation was started patient's vital signs were stable. Patient is alert and oriented. Neuro exam is non-focal. CV: RRR and lungs are clear. Will continue to monitor. Time: 15:52 Reevaluation #2: DR. Ovlale'Dianelys note: Patient is AAO x3, polysubstance abuse, currently patient stated no SI, no HI, no hallucination patient wanted to go home patient is declining antibiotic to take home. Patient was made aware that his prescription was sent to his pharmacy. Time: 07:35 Medications Administered Generic Name Dose Route Start Last Admin Trade Name Freq PRN Reason Stop Dose Admin Cephalexin HCl 500 mg 05/07/24 15:00 05/08/24 03:40 Cephalexin 500 Mg Capsule PO 500 mg Q6H JUAN R Administration Doxycycline Monohydrate 100 mg 05/07/24 15:00 05/07/24 21:28 Doxycycline Monohydrate 100 Mg Capsule PO 100 mg BID JUAN R Administration Discontinued Medications Generic Name Dose Route Start Last Admin Trade Name Freq PRN Reason Stop Dose Admin Lidocaine HCl 2 ml 05/07/24 14:53 05/07/24 15:06 Lidocaine Hcl 1 % Mpf 2 Ml Vial INFILTRATI 05/07/24 14:54 2 ml ONCE ONE Administration Procedures Abscess I/D Site: lower extremity Side (if applicable): left and right Local Anesthetic: lidocaine 1% Amount of anesthesia used (mL): 1 Technique: incised with blade Sent for culture/gram staining?: Yes Irrigation: Yes Packing used?: none Complications: pain and bleeding Medical Decision Making Medical Decision Making MDM Narrative: 53-year-old homeless male with history of IV drug use presents to the ER for evaluation of red and painful abscesses on his lower legs bilaterally for the last 3 weeks. He continues to inject IV drugs. On exam he has moderate swelling, erythema and warmth of the left lower extremity with some generalized swelling. He has a small approximately 2 cm abscess just distal to the medial malleolus that is fluctuant and amenable to drainage. He also has an abscess on the right calf. Both lesions were incised and drained, culture sent. WI to the ER afebrile. He has some mild tachycardia. He is in pain which is likely causing his tachycardia. Lab work today showing no leukocytosis. No major metabolic derangement on his lab workup. No signs of sepsis. Lower extremity ultrasound was done to rule out blood clot which was negative for DVT. He was started on oral antibiotics for cellulitis, primarily of the left lower extremity. Differential Diagnosis Differential Diagnoses: The differential diagnosis associated with the presentation includes Cellulitis, abscess, erysipelas, bacteremia, sepsis Admission/Observation Consideration of admission/observation: Escalation of care including admission/observation considered Lab Data MDM Lab Attestation statement: I reviewed the patient's lab results. Mild anemia, no leukocytosis 05/07/24 14:28 05/07/24 14:28 Labs: Lab Results 05/07/24 05/08/24 Range/Units 14:28 00:19 WBC 6.3 (4.8-10.8) X10*3/uL RBC 4.97 (4.60-5.80) X10*6/uL Hgb 12.9 L (14.0-18.0) g/dl Hct 40.8 L (42.0-52.0) % MCV 82.1 (80.0-98.0) fL MCH 26.0 L (27.0-33.0) pg MCHC 31.6 (31.0-36.0) g/dl RDW 14.9 (11.0-16.0) % Plt Count 320 D (160-400) X10*3/uL MPV 11.2 (9.4-12.4) fL Immature Gran % (Auto) 0.2 (0.0-0.4) % Neut % (Auto) 76.1 H (45-73) % Lymph % (Auto) 14.1 L (20-40) % [place] % (Auto) 4.3 (2-11) % Eos % (Auto) 4.0 (0-4) % Baso % (Auto) 1.3 (0-2) % Lymph # (Auto) 0.9 L (1.2-4.9) X10*3/uL [place] # (Auto) 0.3 (0.1-1.2) X10*3/uL Eos # (Auto) 0.3 (0.0-0.4) X10*3/uL Baso # (Auto) 0.1 (0.0-0.2) X10*3/uL Abs Immat Gran (auto) 0.01 (0.00-0.03) X10*3/uL Absolute Neuts (auto) 4.8 (2.0-8.3) x10*3/uL Absolute Nucleated RBC 0.000 (0.0-0.012) X10*3/uL Nucleated RBC % (auto) 0.0 (0.0-0.2) /100WBC Sodium 139 (135-145) mmol/L Potassium 4.1 (3.3-5.1) mmol/L Chloride 104 (96-108) mmol/L Carbon Dioxide 24 (22-29) mmol/L Anion Gap 15 (12-20) BUN 20 H (9-16) mg/dL Creatinine 1.33 (0.5-1.4) mg/dL Estim Creat Clear Calc 61.1 Estimated GFR 56 Random Glucose 123 H (60-115) mg/dL Calcium 10.0 D (8.4-10.2) mg/dL Total Bilirubin 0.5 (0.0-1.0) mg/dL Direct Bilirubin 0.2 (0.0-0.5) mg/dL AST 30 (5-37) U/L ALT 27 (0-40) U/L Alkaline Phosphatase 75 (39-117) U/L Total Protein 8.7 H (6.5-8.0) g/dL Albumin 4.1 (3.5-5.0) g/dL Urine Color Yellow Urine Appearance Clear Urine pH 7.5 (5.0-9.0) Ur Specific [place] 1.010 (1.005-1.025) Urine Protein Negative (Neg-Trace) mg/dL Urine Glucose (UA) Negative (Negative) mg/dL Urine Ketones Negative (Negative) mg/dL Urine Blood Negative (Negative) Urine Nitrite Negative (Negative) Ur Leukocyte Esterase Negative (Negative) Urine Opiates Screen POSITIVE H (Not Detect) Ur Buprenorphine Scrn Positive H (Not Detect) ng/mL Ur Oxycodone Screen Not Detected (Not Detect) ng/mL Urine Methadone Screen Not Detected (Not Detect) ng/mL Urine Fentanyl Screen POSITIVE H (Not Detect) Ur Barbiturates Screen Not Detected (Not Detect) Ur Phencyclidine Scrn Not Detected (Not Detect) Ur Amphetamines Screen Not Detected (Not Detect) U Benzodiazepines Scrn Not Detected (Not Detect) Urine Cocaine Screen POSITIVE H (Not Detect) U Marijuana (THC) Screen Not Detected (Not Detect) Ethyl Alcohol < 10 mg/dL Independent Interpretation I performed an independent interpretation of an: Ultrasound Interpretation: No visible DVT Radiology Impression Discussion of test interpretation with radiology: I have reviewed the radiologist's reading. Radiologist Impression: US/US venous duplex LE BI IMPRESSION: No evidence of deep venous thrombosis involving the bilateral lower extremities. External Record Review External record reviewed: Outpatient record, Prior outpatient labs and Prior outpatient radiology Prescription Management I considered prescription management with: Pain Medication and Antibiotic Chronic Conditions Patient?s care impacted by: Other (IVDA) Social Determinants Patient?s care significantly limited by Social Determinants of Health including: Inadequate housing, Low income, Problems related to primary support group and Other Social Determinant of Health Discharge Plan Discharge Clinical Impression: Abscess of lower leg, Opioid use disorder Cellulitis Qualifiers: Site of cellulitis: unspecified site Qualified Code(s): L03.90 - Cellulitis, unspecified Patient Disposition: Home, Self-Care Instructions: Cellulitis (ED) Prescriptions: New doxycycline hyclate 100 mg tablet 100 mg PO BID Qty: 14 0RF Print Language: Japanese
[2024-05-07 14:36] LABS: MANUAL DIFF FLAG NO
[2024-05-07 14:38] LABS: Basophils Absolute Auto 0.1 X10*3/uL (0.0-0.2); Basophils Percent Auto 1.3 % (0-2); Eosinophils Absolute Auto 0.3 X10*3/uL (0.0-0.4); Hematocrit 40.8 % (42.0-52.0); Hemoglobin 12.9 g/dl (14.0-18.0); Imm Gran Abs Auto 0.01 X10*3/uL (0.00-0.03); Imm Gran Pct Auto 0.2 % (0.0-0.4); Lymphocytes Absolute Auto 0.9 X10*3/uL (1.2-4.9); Lymphocytes Percent Auto 14.1 % (20-40); Mean Corpuscular HGB Conc 31.6 g/dl (31.0-36.0); Mean Corpuscular Volume 82.1 fL (80.0-98.0); Mean Platelet Volume 11.2 fL (9.4-12.4); Monocytes Absolute Auto 0.3 X10*3/uL (0.1-1.2); Monocytes Percent Auto 4.3 % (2-11); Neutrophils Absolute Auto 4.8 x10*3/uL (2.0-8.3); Neutrophils Percent Auto 76.1 % (45-73); Platelet Count 320 X10*3/uL (160-400); Red Blood Count 4.97 X10*6/uL (4.60-5.80); Red Cell Distribution Width 14.9 % (11.0-16.0); White Blood Count 6.3 X10*3/uL (4.8-10.8)
[2024-05-07 14:53] LABS: Alanine Aminotransferase 27 U/L (0-40); Albumin Level 4.1 g/dL (3.5-5.0); Alkaline Phosphatase 75 U/L (39-117); Anion Gap 15 (12-20); Aspartate Amino Transferase 30 U/L (5-37); Bilirubin Direct 0.2 mg/dL (0.0-0.5); Bilirubin Total 0.5 mg/dL (0.0-1.0); Blood Urea Nitrogen 20 mg/dL (9-16); Carbon Dioxide 24 mmol/L (22-29); Chloride 104 mmol/L (96-108); Creatinine Clr Calc Pharmacy 61.1; Estimated Glomerular Filt Rate 56; Glucose Random 123 mg/dL (60-115); Potassium 4.1 mmol/L (3.3-5.1); Sodium 139 mmol/L (135-145); Total Protein 8.7 g/dL (6.5-8.0)
[2024-05-07] MEDS: Doxycycline Monohydrate 100 MG CAPSULE PO ×2 (15:04→21:28)
[2024-05-07] MEDS: cephALEXin 500 MG CAPSULE PO ×2 (15:04→21:28)
[2024-05-07] MEDS: Lidocaine HCl 1 % MPF 2 ML VIAL INFILTRATI (15:06)
[2024-05-07 15:47] VITALS: BP 101/56; PULSE 75; RESP 16; O2SAT 97
[2024-05-07 16:16] VITALS: PULSE 88
--- NOTE | 2024-05-07 18:14 | PC.NURSE ---
report given to SJ Puga, pt to go to POD 7
--- NOTE | 2024-05-07 18:36 | PC.NURSE ---
Assumed care of patient at 1830, patient agitated on arrival to unit. He is angry that he is missing the paper that was on his bedside table. this RN retrieved said paper. Pt changed over into pod attire and is now resting in 7 eating dinner, no apparent distress noted
[2024-05-07 22:22] LABS: Ethanol < 10 mg/dL
[2024-05-08 00:29] LABS: Appearance Urine Clear; Color Urine Yellow; Glucose Urine UA Negative (Negative); Leukocyte Esterase Urine Negative (Negative); Nitrite Urine Negative (Negative); PH 7.5 (5.0-9.0); Urine Blood Negative (Negative); Urine Ketones Negative (Negative); Urine Protein Negative (Neg-Trace)
[2024-05-08 00:43] LABS: Amphetamine Screen Urine Not Detected (Not Detect); Barbiturates, Urine Not Detected (Not Detect); Benzodiazepines Screen Urine Not Detected (Not Detect); Buprenorphine Scr Positive (Not Detect); Cannabinoid Screen Urine Not Detected (Not Detect); Cocaine Screen Urine POSITIVE (Not Detect); Fentanyl, urine POSITIVE (Not Detect); Methadone Screen, Urine Not Detected (Not Detect); Opiate Screen Urine POSITIVE (Not Detect); Oxycodone Screen Urine Not Detected (Not Detect); Phencyclidine Screen Urine Not Detected (Not Detect)
[2024-05-08] MEDS: cephALEXin 500 MG CAPSULE PO (03:40)
[2024-05-08 07:09] VITALS: BP 128/83; PULSE 62; RESP 18; TEMP 37.2; O2SAT 100
--- NOTE | 2024-05-08 07:10 | PC.NURSE ---
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 Pt now up eating breakfast, mumbling under his breath. Pt is pending CARE team for detox at this time
[2024-05-08 07:44] VITALS: BP 128/83; PULSE 62; RESP 18; TEMP 37.2; O2SAT 100
--- NOTE | 2024-05-08 07:45 | PC.NURSE ---
Pt became agitated, yelling at this RN that he wants to leave because his breakfast is cold and he cannot find a phone number that he had last night on a piece of paper. Pt screaming at this RN that he wants to leave. [place] aware and at bedside. Plan for discharge
== END 2024-05-08 07:51 | disposition home or self-care (01) ==
PROVIDERS: Physician Assistant; Emergency Provider Emergency Medicine
DX: L02.416 Cutaneous abscess of left lower limb (principal); L02.415 Cutaneous abscess of right lower limb; M79.662 Pain in left lower leg; M79.661 Pain in right lower leg; F19.10 Other psychoactive substance abuse, uncomplicated
CPT/HCPCS: 10061; 36415; 80048; 80076; 80307; 81003; 85025; 87040; 87070; 87205; 93970; 99284; J2003